=== PATIENT | female | born 1960 | race African-American/Black ===

== ENCOUNTER 2016-12-09 11:13 | Emergency (ER) | payer MEDICARE ==
[~2016-12-09] VITALS: Ht 162.6 cm; Wt 86.2 kg
[2016-12-09] MEDS ORDERED: FENTANYL PF 100 MCG/2 ML VIAL. IV PRN (13:15)
[2016-12-09] MEDS ORDERED: ONDANSETRON PF 4 MG/2 ML VIAL. IV ONE (13:30)
[2016-12-09] MEDS ORDERED: IV NORMAL SALINE 1000ML BAG 1,000 ML IV SCH (13:30)
[2016-12-09 13:32] LABS: BILIRUBIN,URINE NEGATIVE (NEG); GLUCOSE,URINE >=1000 mg/dL (NEG); NITRITE,URINE NEGATIVE (NEG); PROTEIN,URINE NEGATIVE (NEG-TRACE); UROBILINOGEN,URINE 0.2 mg/dL (0.2 mg/dL)
[2016-12-09 13:41] LABS: BACTERIA,URINE MODERATE /HPF (0-FEW); SQUAMOUS EPITHELIAL CELL,UR MOD /LPF
[2016-12-09 13:48] LABS: BASO % 0 % (0-3); EOS % 0 % (0-3); HEMOGLOBIN 13.5 g/dL (12.0-15.5); LYMPH # 1.2 x10^3/uL (1.0-4.8); LYMPH % 11 % (24-48); MEAN CORPUSCULAR HEMOGLOBIN 26 pg (25-35); MEAN CORPUSCULAR HGB CONC 32 g/dL (31-37); MEAN CORPUSCULAR VOLUME 81 fL (79-100); MONO % 5 % (0-9); NEUT % 84 % (31-73); RED CELL DISTRIBUTION WIDTH 14.7 % (11.5-14.5)
[2016-12-09 14:26] LABS: HEMATOCRIT 40.6 % (36.0-47.0); RED BLOOD COUNT 4.98 x10^6/uL (3.50-5.40); WHITE BLOOD COUNT 8.6 x10^3/uL (4.0-11.0)
[2016-12-09 14:27] LABS: PLATELET COUNT 236 x10^3/uL (140-400)
[2016-12-09 14:31] LABS: ALBUMIN 4.1 g/dL (3.4-5.0); ALK PHOS 96 U/L (46-116); ANION GAP 15 (6-14); AST (SGOT) 12 U/L (15-37); BLOOD UREA NITROGEN 30 mg/dL (7-20); CALCIUM 9.2 mg/dL (8.5-10.1); CARBON DIOXIDE 29 mmol/L (21-32); CHLORIDE 90 mmol/L (98-107); CREATININE 1.4 mg/dL (0.6-1.0); DIRECT BILIRUBIN 0.2 mg/dL (0.0-0.2); GFR 46.9; POTASSIUM 4.1 mmol/L (3.5-5.1); SODIUM 134 mmol/L (136-145); TOTAL BILIRUBIN 0.7 mg/dL (0.2-1.0); TOTAL PROTEIN 7.7 g/dL (6.4-8.2)
[2016-12-09 14:32] LABS: GLUCOSE 532 mg/dL (70-99)
[2016-12-09 14:33] LABS: ALT (SGPT) < 6 U/L (14-59)
[2016-12-09] MEDS ORDERED: IV NORMAL SALINE 1000ML BAG 1,000 ML IV ONE (14:45)
[2016-12-09] MEDS ORDERED: INSULIN REGULAR 100 UNIT/ML 10ML VIAL. IV ONE (15:00)
[2016-12-09 15:48] VITALS: BP 163/90
--- NOTE | 2016-12-09 16:00 | PHYS DOC ---
Past Medical History Past Medical History: Bipolar, Diabetes-Type II, High Cholesterol, Hypertension Past Surgical History: Other Additional Past Surgical Histo: THYROIDECTOMY, D&C, LUMP FROM L BREAST X2 Alcohol Use: None Drug Use: None Adult General Chief Complaint Chief Complaint: HYPERGLYCEMIA HPI HPI Patient is a 56 year old female who presents with with upper quadrant abdominal pain and nausea vomiting for the past 3 days. She states she has multiple episodes of nonbloody, nonbilious emesis over this time. Her pain is achy, nonradiating, intermittent, crampy preceding emesis. She denies cough, dyspnea, diarrhea, dysuria, hematuria, fever or chills. She has not been monitoring her blood glucose. Review of Systems Review of Systems Constitutional: Denies fever or chills [] Eyes: Denies change in visual acuity, redness, or eye pain [] HENT: Denies nasal congestion or sore throat [] Respiratory: Denies cough or shortness of breath [] Cardiovascular: No additional information not addressed in HPI [] GI: Denies bloody stools or diarrhea [] : Denies dysuria or hematuria [] Musculoskeletal: Denies back pain or joint pain [] Integument: Denies rash or skin lesions [] Neurologic: Denies headache, focal weakness or sensory changes [] Endocrine: Denies polyuria or polydipsia [] Current Medications Current Medications Current Medications Medications (Trade) Dose Ordered Sig/Raymond Start Time Stop Time Status Last Admin Dose Admin Fentanyl Citrate (Fentanyl 2ml Vial) 50 mcg PRN Q15MIN PRN 12/09/16 13:15 12/10/16 13:14 Insulin Human Regular (Novolin R Vial) 5 unit 1X ONCE 12/09/16 15:00 12/09/16 15:01 DC 12/09/16 15:31 5 UNIT Ondansetron HCl 4 mg 4 mg 1X ONCE 12/09/16 13:30 12/09/16 13:31 DC 12/09/16 13:51 4 MG Sodium Chloride (Iv Sodium Chloride 0.9% 1000ml Bag) 1,000 ml @ 1,000 mls/hr 1X ONCE 12/09/16 14:45 12/09/16 15:44 DC 12/09/16 15:25 1,000 MLS/HR Allergies Allergies Allergies Coded Allergies Type Severity Reaction Last Updated Verified No Known Drug Allergies 12/09/16 No Physical Exam Physical Exam Constitutional: Well developed, well nourished, no acute distress, non-toxic appearance. [] HENT: Normocephalic, atraumatic, bilateral external ears normal, oropharynx moist, nose normal. [] Eyes: PERRLA, EOMI. [] Neck: Normal range of motion, supple. [] Cardiovascular:Heart rate regular rhythm [] Lungs & Thorax: Bilateral breath sounds clear to auscultation [] Abdomen: Bowel sounds normal, soft, mild left upper quadrant tenderness, no guarding or rebound. [] Skin: Warm, dry, no erythema, no rash. [] Back: No tenderness, no CVA tenderness. [] Extremities: No tenderness, ROM intact, no edema. [] Neurologic: Alert and oriented X 3, normal motor function, normal sensory function, no focal deficits noted. [] Psychologic: Affect normal, judgement normal, mood normal. [] Current Patient Data Vital Signs Vital Signs Date Time Temp Pulse Resp B/P Pulse Ox O2 Delivery O2 Flow Rate FiO2 12/09/16 14:18 88 154/71 96 Nasal Cannula 12/09/16 12:50 98.4 20 98.4 Lab Values Laboratory Tests Test 12/09/16 13:15 12/09/16 13:25 12/09/16 13:30 12/09/16 14:05 Glucose (Fingerstick) 541mg/dL (70-99) *H Urine Collection Type Void Urine Color Yellow Urine Clarity Clear Urine pH 5.0 Urine Specific [place] >=1.030 Urine Protein Negativemg/dL (NEG-TRACE) Urine Glucose (UA) >=1000mg/dL (NEG) Urine Ketones (Stick) 40mg/dL (NEG) Urine Blood Negative (NEG) Urine Nitrite Negative (NEG) Urine Bilirubin Negative (NEG) Urine Urobilinogen Dipstick 0.2mg/dL (0.2 mg/dL) Urine Leukocyte Esterase Negative (NEG) Urine RBC 1-2/HPF (0-2) Urine WBC 5-10/HPF (0-4) Urine Squamous Epithelial Cells Mod/LPF Urine Bacteria Moderate/HPF (0-FEW) White Blood Count 8.6x10^3/uL (4.0-11.0) Red Blood Count 4.98x10^6/uL (3.50-5.40) Hemoglobin 13.5g/dL (12.0-15.5) Hematocrit 40.6% (36.0-47.0) Mean Corpuscular Volume 81fL (79-100) Mean Corpuscular Hemoglobin 26pg (25-35) Mean Corpuscular Hemoglobin Concent 32g/dL (31-37) Red Cell Distribution Width 14.7% (11.5-14.5) H Platelet Count 236x10^3/uL (140-400) Neutrophils (%) (Auto) 84% (31-73) H Lymphocytes (%) (Auto) 11% (24-48) L Monocytes (%) (Auto) 5% (0-9) Eosinophils (%) (Auto) 0% (0-3) Basophils (%) (Auto) 0% (0-3) Neutrophils # (Auto) 9.2x10^3uL (1.8-7.7) H Lymphocytes # (Auto) 1.2x10^3/uL (1.0-4.8) Monocytes # (Auto) 0.6x10^3/uL (0.0-1.1) Eosinophils # (Auto) 0.0x10^3/uL (0.0-0.7) Basophils # (Auto) 0.0x10^3/uL (0.0-0.2) Sodium Level 134mmol/L (136-145) L Potassium Level 4.1mmol/L (3.5-5.1) Chloride Level 90mmol/L (98-107) L Carbon Dioxide Level 29mmol/L (21-32) Anion Gap 15 (6-14) H Blood Urea Nitrogen 30mg/dL (7-20) H Creatinine 1.4mg/dL (0.6-1.0) H Estimated GFR (Cockcroft-Gault) 46.9 Glucose Level 532mg/dL (70-99) *H Calcium Level 9.2mg/dL (8.5-10.1) Total Bilirubin 0.7mg/dL (0.2-1.0) Direct Bilirubin 0.2mg/dL (0.0-0.2) Aspartate Amino Transferase (AST) 12U/L (15-37) L Alanine Aminotransferase (ALT) < 6U/L (14-59) L Alkaline Phosphatase 96U/L (46-116) Total Protein 7.7g/dL (6.4-8.2) Albumin 4.1g/dL (3.4-5.0) Lipase 239U/L (73-393) Test 12/09/16 15:30 Glucose (Fingerstick) 463mg/dL (70-99) H Laboratory Tests 12/09/16 13:30 Laboratory Tests 12/09/16 14:05 Course & Med Decision Making Course & Med Decision Making Pertinent Labs and Imaging studies reviewed. (See chart for details) She has hyperglycemia that is improving after medications. Her symptoms are controlled while in the emergency department. She is tolerating oral intake. Recommend close follow-up with her primary care doctor for further management of hyperglycemia. Return precautions given. She understands and agrees with plan. Dragon Disclaimer Dragon Disclaimer This electronic medical record was generated, in whole or in part, using a voice recognition dictation system. Departure Departure Impression: Primary Impression: Nausea and vomiting Additional Impression: Hyperglycemia Disposition: 01 HOME, SELF-CARE Condition: STABLE Referrals: ABDULKADIR GRULLON (PCP) Patient Instructions: Hyperglycemia, [id number] Additional Instructions: Take Zofran as needed for nausea. Drink liquids to stay hydrated. Follow-up with your primary care doctor. Return for any concerns. Scripts Ondansetron (Zofran Odt)4 Mg Tab.rapdis1 Tab SL Q8HRS #10 TAB Prov:Ivonne HENRY MD 12/09/16 Problem Qualifiers Primary Impression: Nausea and vomiting Vomiting type: unspecified Vomiting Intractability: non-intractable Qualified Code: R11.2 - Nausea with vomiting, unspecified Ivonne HENRY MD Dec 09, 2016 16:00
[2016-12-09] MEDS ORDERED: ONDA4TAB10 SL (16:10)
--- NOTE | 2016-12-12 16:18 | VNOTE ---
CALL BACK NOTE CALL BACK Microbiology 12/09/16 Urine Culture - Final, Complete 12/09/16 Urine Culture Result 1 (SURESH) - Final, Complete 12/09/16 Urine Culture Result 2 (SURESH) - Final, Complete 12/09/16 Antimicrobic Susceptibility - Final, Complete Patient was notified that her urine was positive for e. coli she had not been placed on antibiotics during her visit. Gomez has been called in to her pharmacy at [facility]. SILVA MOTLEY NP Dec 12, 2016 16:18
== END 2016-12-09 16:42 | disposition home or self-care (01) ==
LOC: ER 11:13
DX: R11.2 Nausea with vomiting, unspecified (principal); E11.65 Type 2 diabetes mellitus with hyperglycemia; I10 Essential (primary) hypertension; E78.00 Pure hypercholesterolemia, unspecified
CPT/HCPCS: 36415; 80048; 80076; 81001; 82947; 83690; 85027; 87086; 96361; 96374; 96375; 99284; J2405; J7030; J1815

== ENCOUNTER → 2017-06-01 | Outpatient (CLI) | payer OTHER, MEDICARE ==
[2017-04-23 11:00] VITALS: BP 131/84
[~2017-06-01] MED LIST: METF500T4 PO; ONDA4TAB10 SL
--- NOTE | 2017-06-01 15:36 | RAD ---
CT head without contrast 06/01/2017 at 1353 hours Indication: Subdural hemorrhage Comparison: 04/21/2017 CT head Technique: Multiple axial CT images of the head were obtained from skull base to the vertex without intravenous contrast. Findings: There is interval resolution of small left frontal convexity subdural hemorrhage. No acute intracranial hemorrhage is identified. The ventricles, basal cisterns and sulci are normal for patient's age. Senescent calcifications noted in the basal ganglia. Steel-white matter differentiation is maintained. There is no mass, mass effect or midline shift. Visualized orbits are normal. Mastoid air cells and the nasal sinuses are well aerated. Skull base is intact. No calvarial fractures. Scalp is normal. Impression: Interval resolution of left convexity subdural hemorrhage. No new intracranial hemorrhage is identified. PQRS Compliance Statement: One or more of the following individualized dose reduction techniques were utilized for this examination: 1. Automated exposure control 2. Adjustment of the mA and/or kV according to patient size 3. Use of iterative reconstruction technique
== END | disposition home or self-care (01) ==
LOC: CT 08:00
PROVIDERS: ATTEND Neurological Surgery
DX: I62.00 Nontraumatic subdural hemorrhage, unspecified (principal)
CPT/HCPCS: 70450

== ENCOUNTER 2018-01-10 16:03 | Inpatient (IN) | payer MEDICARE, OTHER ==
[2018-01-10 16:40] LABS: ADD MAN DIFF? NO
[2018-01-10 16:43] LABS: BASO % 0 % (0-3); EOS % 0 % (0-3); HEMATOCRIT 42.2 % (36.0-47.0); HEMOGLOBIN 13.7 g/dL (12.0-15.5); LYMPH # 2.4 x10^3/uL (1.0-4.8); LYMPH % 25 % (24-48); MEAN CORPUSCULAR HEMOGLOBIN 25 pg (25-35); MEAN CORPUSCULAR HGB CONC 32 g/dL (31-37); MEAN CORPUSCULAR VOLUME 78 fL (79-100); MONO # 1.1 x10^3/uL (0.0-1.1); MONO % 11 % (0-9); NEUT # 6.1 x10^3uL (1.8-7.7); NEUT % 63 % (31-73); PLATELET COUNT 294 x10^3/uL (140-400); RED BLOOD COUNT 5.43 x10^6/uL (3.50-5.40); RED CELL DISTRIBUTION WIDTH 15.9 % (11.5-14.5); WHITE BLOOD COUNT 9.6 x10^3/uL (4.0-11.0)
[2018-01-10 16:48] LABS: BILIRUBIN,URINE SMALL (NEG); CLARITY,URINE CLOUDY; COLOR,URINE YELLOW; GLUCOSE,URINE 100 mg/dL (NEG); NITRITE,URINE NEGATIVE (NEG); PROTEIN,URINE 100 mg/dL (NEG-TRACE)
[2018-01-10] MEDS: cloNIDine HCL 0.1 MG TABLET PO (16:52)
[2018-01-10] MEDS: ONDANSETRON PF 4 MG/2 ML VIAL. IV (16:53)
[2018-01-10 16:56] LABS: BACTERIA,URINE MANY /HPF (0-FEW); RBC,URINE 0 /HPF (0-2); SQUAMOUS EPITHELIAL CELL,UR MANY /LPF
[2018-01-10 16:58] LABS: ANION GAP 13 (6-14); BLOOD UREA NITROGEN 12 mg/dL (7-20); BUN/CREATININE RATIO 12 (6-20); CALCIUM 9.1 mg/dL (8.5-10.1); CARBON DIOXIDE 27 mmol/L (21-32); CHLORIDE 95 mmol/L (98-107); GFR 68.9; GLUCOSE 236 mg/dL (70-99); POTASSIUM 3.4 mmol/L (3.5-5.1); SODIUM 135 mmol/L (136-145)
[2018-01-10 17:04] LABS: ALBUMIN 3.9 g/dL (3.4-5.0); ALK PHOS 81 U/L (46-116); ALT (SGPT) 19 U/L (14-59); AST (SGOT) 13 U/L (15-37); LIPASE 118 U/L (73-393); TOTAL BILIRUBIN 0.6 mg/dL (0.2-1.0)
[2018-01-10 17:05] LABS: TROPONINI < 0.017 ng/mL (0.000-0.055)
[2018-01-10 17:09] LABS: NT-PRO BNP 75 pg/mL (0-124)
[2018-01-10] MEDS: METOCLOPRAMIDE HCL 10 MG/2 ML VIAL. IV (17:45)
[2018-01-10] MEDS: LABETALOL 20 MG/4 ML DISP.SYRIN. IVP (17:45)
[2018-01-10] MEDS ORDERED: ONDANSETRON PF 4 MG/2 ML VIAL. IV (18:00)
[2018-01-10 21:07] LABS: POC GLUCOSE 241 mg/dL (70-99)
[2018-01-11 04:21] LABS: ADD MAN DIFF? NO
[2018-01-11 04:26] LABS: BASO # 0.1 x10^3/uL (0.0-0.2); BASO % 1 % (0-3); EOS % 0 % (0-3); HEMATOCRIT 37.7 % (36.0-47.0); HEMOGLOBIN 12.6 g/dL (12.0-15.5); LYMPH # 3.1 x10^3/uL (1.0-4.8); LYMPH % 40 % (24-48); MEAN CORPUSCULAR HEMOGLOBIN 26 pg (25-35); MEAN CORPUSCULAR HGB CONC 34 g/dL (31-37); MEAN CORPUSCULAR VOLUME 77 fL (79-100); MONO # 1.2 x10^3/uL (0.0-1.1); MONO % 15 % (0-9); NEUT # 3.5 x10^3uL (1.8-7.7); NEUT % 45 % (31-73); PLATELET COUNT 265 x10^3/uL (140-400); RED BLOOD COUNT 4.87 x10^6/uL (3.50-5.40); RED CELL DISTRIBUTION WIDTH 15.7 % (11.5-14.5); WHITE BLOOD COUNT 7.8 x10^3/uL (4.0-11.0)
[2018-01-11 04:45] LABS: ALBUMIN 3.3 g/dL (3.4-5.0); ALBUMIN/GLOBULIN RATIO 0.9 (1.0-1.7); ALK PHOS 68 U/L (46-116); ALT (SGPT) 15 U/L (14-59); ANION GAP 8 (6-14); AST (SGOT) 14 U/L (15-37); BLOOD UREA NITROGEN 14 mg/dL (7-20); BUN/CREATININE RATIO 14 (6-20); CALCIUM 8.4 mg/dL (8.5-10.1); CARBON DIOXIDE 31 mmol/L (21-32); CHLORIDE 98 mmol/L (98-107); GFR 68.9; GLUCOSE 183 mg/dL (70-99); POTASSIUM 3.2 mmol/L (3.5-5.1); SODIUM 137 mmol/L (136-145); TOTAL BILIRUBIN 0.5 mg/dL (0.2-1.0); TOTAL PROTEIN 6.8 g/dL (6.4-8.2)
[2018-01-11 07:48] LABS: POC GLUCOSE 245 mg/dL (70-99)
[2018-01-11] MEDS: LABETALOL 20 MG/4 ML DISP.SYRIN. IV ×2 (08:02→12:35)
[2018-01-11] MEDS ORDERED: BISACODYL 5 MG TABLET.DR. PO (10:15)
[2018-01-11 11:38] LABS: POC GLUCOSE 245 mg/dL (70-99)
[2018-01-11] MEDS ORDERED: ONDANSETRON ODT 4 MG TAB.RAPDIS. PO (11:45)
[2018-01-11] MEDS: PANTOPRAZOLE 40 MG TABLET.DR. PO (12:33)
[2018-01-11] MEDS: LINAGLIPTIN 5 MG TABLET PO (12:33)
[2018-01-11] MEDS: POLYETHYLENE GLYCOL 3350 17 GM PACKET. PO (12:33)
[2018-01-11] MEDS: LEVOTHYROXINE 100 MCG TABLET PO (12:33)
[2018-01-11] MEDS: INSULIN DETEMIR 300 UNITS/3 ML INSULN.PEN. SQ (12:43)
[2018-01-11] MEDS ORDERED: metFORMIN 500 MG TABLET PO ×2 (17:00)
[2018-01-11] MEDS ORDERED: SIMVASTATIN 40 MG TABLET. PO (21:00)
[2018-01-11] MEDS ORDERED: QUEtiapine 100 MG TABLET. PO (21:00)
[2018-01-12 01:14] LABS: HEMOGLOBIN A1C 9.7 % (4.8-5.6)
== END 2018-01-11 17:45 | disposition home or self-care (01) | DRG 391 ==
LOC: ER 16:03 → ED HOLD 16:50 → 4 NORTH 20:13
DX: A08.4 Viral intestinal infection, unspecified (principal); K85.90 Acute pancreatitis without necrosis or infection, unspecified; I10 Essential (primary) hypertension; E11.9 Type 2 diabetes mellitus without complications; E78.5 Hyperlipidemia, unspecified; E89.0 Postprocedural hypothyroidism; F17.210 Nicotine dependence, cigarettes, uncomplicated; F31.9 Bipolar disorder, unspecified; K21.9 Gastro-esophageal reflux disease without esophagitis; K59.00 Constipation, unspecified; Z82.3 Family history of stroke; Z82.49 Family history of ischemic heart disease and other diseases of the circulatory system; Z90.710 Acquired absence of both cervix and uterus
CPT/HCPCS: 36415; 71045; 76705; 80053; 81001; 82962; 83036; 83690; 83880; 84484; 85025; 87086; 93005; 96374; 96375; 99285; 99285-25; J1815; J2405; J2765; J3490

== ENCOUNTER → 2018-07-05 | Outpatient (CLI) | payer OTHER ==
[2018-01-11 15:00] VITALS: BP 171/103
[~2018-07-05] MED LIST changes: +INSU100V13 SQ; +LEVO100T5 PO; +LINA5TAB4 PO; -METF500T4 PO; +METF500T5 PO; +QUET300T5 PO; +SIMV40TA3 PO
--- NOTE | 2018-07-06 12:54 | RAD ---
DATE: 07/05/2018 EXAM: MAMMO PAXTON SCREENING BILATERAL HISTORY: Routine screening evaluation COMPARISON: 10/20/2008 Bilateral CC and MLO views of the breasts were performed. Bilateral breast tomosynthesis was performed in CC and MLO projections. This study was interpreted with the benefit of Computerized Aided Detection (CAD). The breast parenchyma is heterogeneously dense, which could reduce sensitivity of mammography. Breast parenchyma level C. FINDINGS: Benign calcifications are present. No suspicious masses, microcalcifications or architectural distortion is present to suggest malignancy in either breast. The visualized axillae are unremarkable. IMPRESSION: No mammographic evidence of malignancy. BI-RADS CATEGORY: 2 BENIGN FINDING(S) RECOMMENDED FOLLOW-UP: 12M 12 MONTH FOLLOW-UP Annual screening mammography is recommended, unless clinically indicated sooner based on symptoms or change in physical exam. PQRS compliance statement: Patient information was entered into a reminder system with a target due date for the next mammogram. Mammography is a sensitive method for finding small breast cancers, but it does not detect them all and is not a substitute for careful clinical examination. A negative mammogram does not negate a clinically suspicious finding and should not result in delay in biopsying a clinically suspicious abnormality. "Our facility is accredited by the [employer] Mammography Program."
== END | disposition home or self-care (01) ==
LOC: MAMMO 11:12
PROVIDERS: ATTEND Internal Medicine
DX: Z12.31 Encounter for screening mammogram for malignant neoplasm of breast (principal)
CPT/HCPCS: 77063; 77067

== ENCOUNTER 2019-01-11 23:00 | Inpatient (IN) | payer OTHER ==
[~2019-01-11] VITALS: Ht 167.6 cm; Wt 78.5 kg
[~2019-01-11 23:00] MED LIST changes: +AMLO10TA8 PO; +ASPI-612 PO; +ATOR40TA59 PO; +DULA1.5P SQ; +INSU100I13 SQ; +LINA5TAB PO; -LINA5TAB4 PO; +LISI1TAB3 PO; +METF500T16 PO; -METF500T5 PO
[2019-01-11] MEDS ORDERED: IV NORMAL SALINE 1000ML BAG 1,000 ML IV SCH (23:45)
--- NOTE | 2019-01-12 00:21 | RAD ---
INDICATION: right sided facial droop; period of unresponsiveness COMPARISON: January 03, 2019 TECHNIQUE: Axial CT images obtained through the head without intravenous contrast. One or more of the following individualized dose reduction techniques were utilized for this examination: 1. Automated exposure control; 2. Adjustment of the mA and/or kV according to patient size; 3. Use of iterative reconstruction technique. FINDINGS: No midline shift. Suprasellar cistern is not effaced. Scattered regions of low density are seen within the white matter. Repeat demonstration of region of high density in the basal ganglia bilaterally as well as very subtle region of high density seen superior to this site. IMPRESSION: 1. Repeat demonstration of multifocal regions of low density bilaterally. Some of these are chronic in nature likely from chronic small vessel ischemic disease in some of them correspond to the recently diagnosed regions of peripheral ischemia with associated edema. Overall severity is similar to prior. 2. Repeat demonstration of high density at the basal ganglia bilaterally. Again this could be secondary to calcifications within the region. The overall degree of the suspected small foci of blood within the left basal ganglia does not appear increased from prior without definite new region of hemorrhage. 3. evidence of old lacunar infarct adjacent to right lateral ventricle. Electronically signed by: Barney Escobar MD (01/12/2019 12:18 AM) [facility]
[2019-01-12 00:33] LABS: BASO % 1 % (0-3); EOS % 0 % (0-3); HEMATOCRIT 38.2 % (36.0-47.0); HEMOGLOBIN 12.2 g/dL (12.0-15.5); LYMPH # 1.9 x10^3/uL (1.0-4.8); LYMPH % 35 % (24-48); MEAN CORPUSCULAR HEMOGLOBIN 26 pg (25-35); MEAN CORPUSCULAR HGB CONC 32 g/dL (31-37); MEAN CORPUSCULAR VOLUME 81 fL (79-100); MONO # 0.6 x10^3/uL (0.0-1.1); MONO % 10 % (0-9); NEUT % 55 % (31-73); PLATELET COUNT 243 x10^3/uL (140-400); RED BLOOD COUNT 4.69 x10^6/uL (3.50-5.40); RED CELL DISTRIBUTION WIDTH 15.3 % (11.5-14.5); WHITE BLOOD COUNT 5.5 x10^3/uL (4.0-11.0)
[2019-01-12 00:40] LABS: CALCIUM 8.8 mg/dL (8.5-10.1); CREATININE 1.1 mg/dL (0.6-1.0); GFR 61.5; POTASSIUM 3.5 mmol/L (3.5-5.1); PROTHROMBIN TIME PATIENT 12.9 SEC (11.7-14.0)
[2019-01-12 00:45] LABS: ALBUMIN 3.4 g/dL (3.4-5.0); ALBUMIN/GLOBULIN RATIO 0.9 (1.0-1.7); MAGNESIUM 1.8 mg/dL (1.8-2.4); TOTAL BILIRUBIN 0.5 mg/dL (0.2-1.0); TOTAL PROTEIN 7.1 g/dL (6.4-8.2)
--- NOTE | 2019-01-12 01:14 | PHYS DOC ---
Past Medical History Past Medical History: Bipolar, CVA, Diabetes-Type II, High Cholesterol, Hypertension, Hypothyroid Past Surgical History: Other Additional Past Surgical Histo: THYROIDECTOMY, D&C, LUMP FROM L BREAST X2 Alcohol Use: None Drug Use: None Adult General Chief Complaint Chief Complaint: NEURO SYMPTOMS/DEFICITS HPI HPI Patient is a 58-year-old female who presents with report of strokelike symptoms. Patient presents with daughter and she indicates that patient was recently discharged from the hospital after having had stroke. She was admitted on January 03 and discharged on the . Daughter states that she was getting patient up to go to bed when patient's legs gave out, she slumped backward and eyes rolled back in the back of her head. She states that for a short period of time patient was not responsive and then was confused for probably about 5-10 minutes. She denies any shaking. She does state that she noticed that patient had right-sided facial droop which is new from when she was discharged. She states that facial droop is still present. Additional history is limited as patient is not answering questions. Review of Systems Review of Systems Constitutional: Denies fever or chills [] Respiratory: Denies cough or shortness of breath [] Cardiovascular: No additional information not addressed in HPI [] GI: Denies vomiting or diarrhea [] Neurologic: Positive facial droop, aphasia and mental status change[] Unable to fully assess review of systems as patient is not answering questions. Current Medications Current Medications Current Medications Medications (Trade) Dose Ordered Sig/Raymond Start Time Stop Time Status Last Admin Dose Admin Ondansetron HCl (Zofran) 4 mg PRN Q8HRS PRN 01/12/19 02:45 01/13/19 02:44 Sodium Chloride 1,000 ml @ 100 mls/hr Q10H 01/12/19 02:45 01/13/19 02:44 01/12/19 21:34 100 MLS/HR Allergies Allergies Allergies Coded Allergies Type Severity Reaction Last Updated Verified No Known Drug Allergies 12/09/16 No Physical Exam Physical Exam Constitutional: Well developed, well nourished, no acute distress, non-toxic appearance. [] HENT: Normocephalic, atraumatic, bilateral external ears normal, oropharynx moist, no oral exudates, nose normal. [] Eyes: PERRLA, EOMI, conjunctiva normal, no discharge. [] Neck: Normal range of motion, no tenderness, supple, no stridor. [] Cardiovascular:Heart rate regular rhythm, no murmur [] Lungs & Thorax: Bilateral breath sounds clear to auscultation [] Abdomen: Bowel sounds normal, soft, no tenderness, no masses, no pulsatile masses. [] Skin: Warm, dry, no erythema, no rash. [] Back: No tenderness, no CVA tenderness. [] Extremities: No tenderness, no cyanosis, no clubbing, ROM intact, no edema. [] Neurologic: Alert and oriented X 3, normal motor function, normal sensory function, no focal deficits noted. [] Psychologic: Affect normal, judgement normal, mood normal. [] Current Patient Data Vital Signs Vital Signs Date Time Temp Pulse Resp B/P (MAP) Pulse Ox O2 Delivery O2 Flow Rate FiO2 01/12/19 02:38 88 16 98 01/11/19 23:15 97.8 129/66 (87) Room Air 97.8 Lab Values Laboratory Tests Test 01/12/19 00:21 White Blood Count 5.5 x10^3/uL (4.0-11.0) Red Blood Count 4.69 x10^6/uL (3.50-5.40) Hemoglobin 12.2 g/dL (12.0-15.5) Hematocrit 38.2 % (36.0-47.0) Mean Corpuscular Volume 81 fL (79-100) Mean Corpuscular Hemoglobin 26 pg (25-35) Mean Corpuscular Hemoglobin Concent 32 g/dL (31-37) Red Cell Distribution Width 15.3 % (11.5-14.5) H Platelet Count 243 x10^3/uL (140-400) Neutrophils (%) (Auto) 55 % (31-73) Lymphocytes (%) (Auto) 35 % (24-48) Monocytes (%) (Auto) 10 % (0-9) H Eosinophils (%) (Auto) 0 % (0-3) Basophils (%) (Auto) 1 % (0-3) Neutrophils # (Auto) 3.0 x10^3uL (1.8-7.7) Lymphocytes # (Auto) 1.9 x10^3/uL (1.0-4.8) Monocytes # (Auto) 0.6 x10^3/uL (0.0-1.1) Eosinophils # (Auto) 0.0 x10^3/uL (0.0-0.7) Basophils # (Auto) 0.0 x10^3/uL (0.0-0.2) Prothrombin Time 12.9 SEC (11.7-14.0) Prothrombin Time INR 1.0 (0.8-1.1) Sodium Level 136 mmol/L (136-145) Potassium Level 3.5 mmol/L (3.5-5.1) Chloride Level 97 mmol/L (98-107) L Carbon Dioxide Level 28 mmol/L (21-32) Anion Gap 11 (6-14) Blood Urea Nitrogen 20 mg/dL (7-20) Creatinine 1.1 mg/dL (0.6-1.0) H Estimated GFR (Cockcroft-Gault) 61.5 BUN/Creatinine Ratio 18 (6-20) Glucose Level 328 mg/dL (70-99) H Calcium Level 8.8 mg/dL (8.5-10.1) Magnesium Level 1.8 mg/dL (1.8-2.4) Total Bilirubin 0.5 mg/dL (0.2-1.0) Aspartate Amino Transferase (AST) 17 U/L (15-37) Alanine Aminotransferase (ALT) 17 U/L (14-59) Alkaline Phosphatase 67 U/L (46-116) Total Protein 7.1 g/dL (6.4-8.2) Albumin 3.4 g/dL (3.4-5.0) Albumin/Globulin Ratio 0.9 (1.0-1.7) L Laboratory Tests 01/12/19 00:21 Laboratory Tests 01/12/19 00:21 EKG EKG [] Radiology/Procedures Radiology/Procedures [] Impressions: PROCEDURE: CT HEAD WO CONTRAST INDICATION: right sided facial droop; period of unresponsiveness COMPARISON: January 03, 2019 TECHNIQUE: Axial CT images obtained through the head without intravenous contrast. One or more of the following individualized dose reduction techniques were utilized for this examination: 1. Automated exposure control; 2. Adjustment of the mA and/or kV according to patient size; 3. Use of iterative reconstruction technique. FINDINGS: No midline shift. Suprasellar cistern is not effaced. Scattered regions of low density are seen within the white matter. Repeat demonstration of region of high density in the basal ganglia bilaterally as well as very subtle region of high density seen superior to this site. IMPRESSION: 1. Repeat demonstration of multifocal regions of low density bilaterally. Some of these are chronic in nature likely from chronic small vessel ischemic disease in some of them correspond to the recently diagnosed regions of peripheral ischemia with associated edema. Overall severity is similar to prior. 2. Repeat demonstration of high density at the basal ganglia bilaterally. Again this could be secondary to calcifications within the region. The overall degree of the suspected small foci of blood within the left basal ganglia does not appear increased from prior without definite new region of hemorrhage. 3. evidence of old lacunar infarct adjacent to right lateral ventricle. Electronically signed by: Barney Escobar MD (01/12/2019 12:18 AM) [facility] Course & Med Decision Making Course & Med Decision Making Pertinent Labs and Imaging studies reviewed. (See chart for details) [] Dragon Disclaimer Dragon Disclaimer This electronic medical record was generated, in whole or in part, using a voice recognition dictation system. Departure Departure Impression: Primary Impression: TIA (transient ischemic attack) Disposition: 09 ADMITTED INPATIENT Admitting Physician: Other (Dr. Reyes) Condition: IMPROVED Referrals: KANCHAN CASTANON MD (PCP) BRAYDEN GARCIA Jr. DO Jan 12, 2019 01:14
[2019-01-12] MEDS ORDERED: ONDANSETRON PF 4 MG/2 ML VIAL. IV PRN (02:45)
[2019-01-12 03:45] VITALS: BP 121/76
[2019-01-12] MEDS ORDERED: INFLUENZA VAX SCREEN BY RX. MC ONE (05:15)
[2019-01-12] MEDS: IV NORMAL SALINE 1000ML BAG 1,000 ML IV SCH ×3 (05:18→21:34)
[2019-01-12 07:00] VITALS: BP 118/63
[2019-01-12 11:00] VITALS: BP 140/87
--- NOTE | 2019-01-12 12:16 | PDOC1 ---
History and Physical Date of Admission Date of Admission DATE: 01/12/19 TIME: 11:42 Identification/Chief Complaint Chief Complaint Shaking Source Source: Patient History of Present Illness History of Present Illness 58-year-old right-handed female with history of diabetes and bipolar disorder who was found shaking and unresponsive at home by her sister. Had CVA confirmed 01/05, discharged on 01/07 to home health with her sister. Previously seen 2 years ago for a small subdural hematoma not requiring surgery. CT head in ED did not demonstrate new CVA. She has no complaints, except hunger. She is verbalizing as much as she did with me last visit. Failed her bedside swallow with nursing. Oriented to person only, not able to get much more history out of her. [Prior admit: Worked with PT/OT/TELEPHONE OPERATOR, recommended home health on D/C. BP was difficult to control, requiring IV meds up until day of d/c. placed on 3 antihypertensives on d/c. She could not tolerate metformin due to vomiting, changed to insulin. Previously stopped GLP-1 due to pancreatitis, stop this as well. Hold ASA per neuro recs, 7 days as of 01/07. No swallow issues Echocardiogram as part of stroke workup: Left ventricle systolic function is normal. The Ejection Fraction is 60-65%. There is normal LV segmental wall motion. The interatrial septum is intact with no evidence for an atrial septal defect or patent foramen ovale as noted on 2-D or Doppler imaging. Injection of bubbles documented no interatrial shunt. mri: 1. Scattered small acute or subacute infarct within the bilateral cerebral white matter and the right cerebellum. The majority of these lesions appear to be subacute based on signal characteristics. The acute lesions are located within the right frontal lobe and right cerebellum. 2. Acute or subacute intraparenchymal hemorrhage or hemorrhagic transformation of an infarct within the left basal ganglia and adjacent periventricular white matter. 3. Suspected chronic hemorrhage or hemorrhagic infarct within the right caudate nucleus and chronic lacunar infarcts within the left caudate nucleus, left thalamus and right jomar. 4. Scattered areas of signal change within the cerebral white matter, likely due to chronic small vessel disease] Past Medical History Cardiovascular: HTN CENTRAL NERVOUS SYSTEM: Periperal neuropathy, Other GI: Other Psych: Addictions, Bipolar Endocrine: Diabetes, Hypothyroidism Past Surgical History Past Surgical History: Other Family History Family History: Hypertension Social History ALCOHOL: none Drugs: None Current Problem List Problem List Problems Medical Problems: (1) TIA (transient ischemic attack) Status: Acute Current Medications Current Medications Current Medications Sodium Chloride 1,000 ml @ 100 mls/hr Q10H IV Last administered on 01/12/19at 01:11; Start 01/11/19 at 23:45; Stop 01/12/19 at 09:44; Status DC Ondansetron HCl (Zofran) 4 mg PRN Q8HRS PRN IV NAUSEA/VOMITING; Start 01/12/19 at 02:45; Stop 01/13/19 at 02:44 Sodium Chloride 1,000 ml @ 100 mls/hr Q10H IV Last administered on 01/12/19at 11:13; Start 01/12/19 at 02:45; Stop 01/13/19 at 02:44 Info (FLU VACCINE SCREEN per RX) 1 each 1X ONCE MC ; Start 01/12/19 at 05:15; Stop 01/12/19 at 05:16; Status UNV Influenza Virus Vaccine (Afluria Trivalent [id number] Syringe) 0.5 ml ONCE ONCE VAX IM Last administered on 01/12/19at 09:09; Start 01/12/19 at 09:00; Stop at 09:01; Status DC Active Scripts Active Lisinopril-Hctz 10-12.5 Mg Tab (Lisinopril/Hydrochlorothiazide) 1 Each Tablet 1 Tab PO DAILY 3 Days Aspirin Ec (Aspirin) 81 Mg Tablet. 1 Tab PO DAILY Lantus Solostar (Insulin Glargine,Hum.rec.anlog) 100 Unit/1 Ml Insuln.pen 8 Unit SQ QHS Amlodipine Besylate 10 Mg Tablet 10 Mg PO DAILY 30 Days Atorvastatin Calcium 40 Mg Tablet 1 Tab PO DAILY 30 Days Reported Trulicity (Dulaglutide) 1.5 Mg/0.5 Ml Pen.injctr 1.5 Mg SQ WEEKLY Seroquel (Quetiapine Fumarate) 300 Mg Tablet 1 Tab PO QHS Levothyroxine Sodium 100 Mcg Tablet 1 Tab PO DAILY Allergies Allergies: Coded Allergies: No Known Drug Allergies (Unverified , 12/09/16) ROS Review of System Unable to obtain due to confusion state, not oriented. She denies any positives in a 14 point system review except hunger Physical Exam General: Alert, Cooperative, No acute distress HEENT: Atraumatic, PERRLA, EOMI, Mucous membr. moist/pink Lungs: Clear to auscultation, Normal air movement Heart: S1S2, RRR Rectal Exam: not examined Extremities: No clubbing, No cyanosis, No edema, Normal pulses, No tenderness/ swelling Neuro: Other (orientation, memory, attention span/concentration, language, fund of knowledge: Knows that she is in the hospital, does not know the date, does follow commands, unable to give history. Cranial Nerves:Pupils equal and reactive to light, extraocular movements areintact, visual vargas are full to confrontation. Facial sensation is normal. There is no facial asymmetry. Vestibulo-ocular reflex is intact. Palate elevates and tongue protrudes in midline. All other cranial related problems are negative except as mentioned before.Reflexes:0-1+ and symmetric with flexor plantar responses. Motor:4/5 strength with normal tone and bulk. Coordination:Finger-nose finger and heel-to -ring testing are normal. Rapid alternating movements and fine finger movements are intact. Gait:Not tested. Sensory:Stocking loss.) Psych/Mental Status: Other (Confused) Vitals Vitals Vital Signs Date Time Temp Pulse Resp B/P (MAP) Pulse Ox O2 Delivery O2 Flow Rate FiO2 01/12/19 11:00 98.7 75 18 140/87 (104) 92 Room Air 98.7 Labs Labs Laboratory Tests Test 01/12/19 00:21 01/12/19 07:12 01/12/19 11:04 White Blood Count 5.5 x10^3/uL (4.0-11.0) Red Blood Count 4.69 x10^6/uL (3.50-5.40) Hemoglobin 12.2 g/dL (12.0-15.5) Hematocrit 38.2 % (36.0-47.0) Mean Corpuscular Volume 81 fL (79-100) Mean Corpuscular Hemoglobin 26 pg (25-35) Mean Corpuscular Hemoglobin Concent 32 g/dL (31-37) Red Cell Distribution Width 15.3 % (11.5-14.5) Platelet Count 243 x10^3/uL (140-400) Neutrophils (%) (Auto) 55 % (31-73) Lymphocytes (%) (Auto) 35 % (24-48) Monocytes (%) (Auto) 10 % (0-9) Eosinophils (%) (Auto) 0 % (0-3) Basophils (%) (Auto) 1 % (0-3) Neutrophils # (Auto) 3.0 x10^3uL (1.8-7.7) Lymphocytes # (Auto) 1.9 x10^3/uL (1.0-4.8) Monocytes # (Auto) 0.6 x10^3/uL (0.0-1.1) Eosinophils # (Auto) 0.0 x10^3/uL (0.0-0.7) Basophils # (Auto) 0.0 x10^3/uL (0.0-0.2) Prothrombin Time 12.9 SEC (11.7-14.0) Prothromb Time International Ratio 1.0 (0.8-1.1) Sodium Level 136 mmol/L (136-145) Potassium Level 3.5 mmol/L (3.5-5.1) Chloride Level 97 mmol/L (98-107) Carbon Dioxide Level 28 mmol/L (21-32) Anion Gap 11 (6-14) Blood Urea Nitrogen 20 mg/dL (7-20) Creatinine 1.1 mg/dL (0.6-1.0) Estimated GFR (Cockcroft-Gault) 61.5 BUN/Creatinine Ratio 18 (6-20) Glucose Level 328 mg/dL (70-99) Calcium Level 8.8 mg/dL (8.5-10.1) Magnesium Level 1.8 mg/dL (1.8-2.4) Total Bilirubin 0.5 mg/dL (0.2-1.0) Aspartate Amino Transf (AST/SGOT) 17 U/L (15-37) Alanine Aminotransferase (ALT/SGPT) 17 U/L (14-59) Alkaline Phosphatase 67 U/L (46-116) Total Protein 7.1 g/dL (6.4-8.2) Albumin 3.4 g/dL (3.4-5.0) Albumin/Globulin Ratio 0.9 (1.0-1.7) Glucose (Fingerstick) 194 mg/dL (70-99) 165 mg/dL (70-99) Laboratory Tests Test 01/12/19 00:21 01/12/19 07:12 01/12/19 11:04 White Blood Count 5.5 x10^3/uL (4.0-11.0) Red Blood Count 4.69 x10^6/uL (3.50-5.40) Hemoglobin 12.2 g/dL (12.0-15.5) Hematocrit 38.2 % (36.0-47.0) Mean Corpuscular Volume 81 fL (79-100) Mean Corpuscular Hemoglobin 26 pg (25-35) Mean Corpuscular Hemoglobin Concent 32 g/dL (31-37) Red Cell Distribution Width 15.3 % (11.5-14.5) Platelet Count 243 x10^3/uL (140-400) Neutrophils (%) (Auto) 55 % (31-73) Lymphocytes (%) (Auto) 35 % (24-48) Monocytes (%) (Auto) 10 % (0-9) Eosinophils (%) (Auto) 0 % (0-3) Basophils (%) (Auto) 1 % (0-3) Neutrophils # (Auto) 3.0 x10^3uL (1.8-7.7) Lymphocytes # (Auto) 1.9 x10^3/uL (1.0-4.8) Monocytes # (Auto) 0.6 x10^3/uL (0.0-1.1) Eosinophils # (Auto) 0.0 x10^3/uL (0.0-0.7) Basophils # (Auto) 0.0 x10^3/uL (0.0-0.2) Prothrombin Time 12.9 SEC (11.7-14.0) Prothromb Time International Ratio 1.0 (0.8-1.1) Sodium Level 136 mmol/L (136-145) Potassium Level 3.5 mmol/L (3.5-5.1) Chloride Level 97 mmol/L (98-107) Carbon Dioxide Level 28 mmol/L (21-32) Anion Gap 11 (6-14) Blood Urea Nitrogen 20 mg/dL (7-20) Creatinine 1.1 mg/dL (0.6-1.0) Estimated GFR (Cockcroft-Gault) 61.5 BUN/Creatinine Ratio 18 (6-20) Glucose Level 328 mg/dL (70-99) Calcium Level 8.8 mg/dL (8.5-10.1) Magnesium Level 1.8 mg/dL (1.8-2.4) Total Bilirubin 0.5 mg/dL (0.2-1.0) Aspartate Amino Transf (AST/SGOT) 17 U/L (15-37) Alanine Aminotransferase (ALT/SGPT) 17 U/L (14-59) Alkaline Phosphatase 67 U/L (46-116) Total Protein 7.1 g/dL (6.4-8.2) Albumin 3.4 g/dL (3.4-5.0) Albumin/Globulin Ratio 0.9 (1.0-1.7) Glucose (Fingerstick) 194 mg/dL (70-99) 165 mg/dL (70-99) Images Images CT Head - 1. Repeat demonstration of multifocal regions of low density bilaterally. Some of these are chronic in nature likely from chronic small vessel ischemic disease in some of them correspond to the recently diagnosed regions of peripheral ischemia with associated edema. Overall severity is similar to prior. 2. Repeat demonstration of high density at the basal ganglia bilaterally. Again this could be secondary to calcifications within the region. The overall degree of the suspected small foci of blood within the left basal ganglia does not appear increased from prior without definite new region of hemorrhage. 3. evidence of old lacunar infarct adjacent to right lateral ventricle. VTE Prophylaxis Ordered VTE Prophylaxis Devices: Yes VTE Pharmacological Prophylaxi: No Assessment/Plan Assessment/Plan A/P: Shaking - no hemorrhage on CT head. Will consult neurology for this, no seizure like activity has been noted Acute to subacute right cerebellar lobe and bilateral cerebral ischemic CVA - does have ASA on hold for 2 additional day, cont statin History of left subdural hematoma 2 years ago - stable Some hemorrhagic transformation of ischemic CVA - holding ASA Possible interval development of left basal ganglia stroke - will consult neurology Metabolic encephalopathy - likely related to medication noncompliance, elevated sugars, renal insufficiency probably prerenal dehydration, as well as lack of treatment of her psychiatric disorder and her recent stroke History of bipolar disease - cont seroquel History of alcohol abuse, none in several years - monitor Accel HTN - will restart meds FEN - NPO pending TELEPHONE OPERATOR bedside PPX - SCDs FULL CODE Inpatient for acute encephalopathy in patient with recent CVA, she will need skilled placement on D/C, seems to have failed a home health trial at this point. At least 2 midnights to get her improved MALFEL,ADAMARIS Davis MD Jan 12, 2019 12:16
[2019-01-12] MEDS: amLODIPine BESYLATE 10 MG TABLET PO SCH ×2 (12:57→15:17)
[2019-01-12] MEDS: hydroCHLOROthiazide 12.5 MG CAPSULE PO SCH ×2 (12:57→15:16)
[2019-01-12] MEDS: LISINOPRIL 10 MG TABLET PO SCH ×2 (12:57→15:17)
[2019-01-12] MEDS: LEVOTHYROXINE 100 MCG TABLET PO SCH ×2 (12:58→15:16)
--- NOTE | 2019-01-12 14:50 | EKG ---
[facility] [address] [place] [address] Test Date: 2019-01-11 Test Time: 23:19:45 Pat Name: TU ALVAREZ Department: Room: [facility] Gender: F Feltmaker: : 1960 Requested By: BRAYDEN GARCIA Order Number: [id number] Reading MD: Josh Noyola Measurements Intervals [place] Rate: 93 P: 22 IA: 146 QRS: 62 QRSD: 84 T: 41 QT: 360 QTc: 450 Interpretive Statements SINUS RHYTHM Electronically Signed On 01-22-2019 10:28:23 FREIGHT SORTER by Josh Noyola
[2019-01-12 15:00] VITALS: BP 128/86
[2019-01-12] MEDS: ASPIRIN ENTERIC COATED 81 MG TABLET.DR. PO SCH (15:16)
[2019-01-12] MEDS: levETIRAcetam 500 MG in IV DEXTROSE 5% 100ML 100 ML IV SCH ×2 (15:17→22:23)
--- NOTE | 2019-01-12 18:55 | PDOC2 ---
CONSULT Date of Consult Date of Consult DATE: 01/12/19 TIME: 18:52 Reason for Consult Reason for Consult: seizure activity History of Present Illness Reason for Visit: This patient is 58-year-old female with history of bipolar disorder, diabetes patient was previously treated for stroke and was discharged on . Patient lives with her sister at home. Patient presented with the episode concerning for seizure activity. Information obtained from patient's family she was having episode when she was confused her eye balls were staring she was not able to follow commands patient appeared to be confused and she also lost consciousness over several minutes. They denied any tongue bite or loss of better bowel control. Past Medical History Cardiovascular: HTN CENTRAL NERVOUS SYSTEM: Periperal neuropathy, Other GI: Other Psych: Addictions, Bipolar Endocrine: Diabetes, Hypothyroidism Past Surgical History Past Surgical History: Other Family History Family History: Hypertension Social History ALCOHOL: none Drugs: None Current Problem List Problem List Problems Medical Problems: (1) TIA (transient ischemic attack) Status: Acute Current Medications Current Medications Current Medications Sodium Chloride 1,000 ml @ 100 mls/hr Q10H IV Last administered on 01/12/19at 01:11; Start 01/11/19 at 23:45; Stop 01/12/19 at 09:44; Status DC Ondansetron HCl (Zofran) 4 mg PRN Q8HRS PRN IV NAUSEA/VOMITING; Start 01/12/19 at 02:45; Stop 01/13/19 at 02:44 Sodium Chloride 1,000 ml @ 100 mls/hr Q10H IV Last administered on 01/12/19at 11:13; Start 01/12/19 at 02:45; Stop 01/13/19 at 02:44 Info (FLU VACCINE SCREEN per RX) 1 each 1X ONCE MC ; Start 01/12/19 at 05:15; Stop 01/12/19 at 05:16; Status UNV Influenza Virus Vaccine (Afluria Trivalent [id number] Syringe) 0.5 ml ONCE ONCE VAX IM Last administered on 01/12/19at 09:09; Start 01/12/19 at 09:00; Stop at 09:01; Status DC Amlodipine Besylate (Norvasc) 10 mg DAILY PO Last administered on 01/12/19at 15: 17; Start 01/12/19 at 13:00 Atorvastatin Calcium (Lipitor) 40 mg QHS PO ; Start 01/12/19 at 21:00 Insulin Glargine (Lantus) 8 units QHS SQ ; Start 01/12/19 at 21:00 Levothyroxine Sodium (Synthroid) 100 mcg DAILY07 PO Last administered on at 15:16; Start 01/12/19 at 13:00 Lisinopril (Prinivil) 10 mg DAILY PO Last administered on 01/12/19at 15:17; Start 01/12/19 at 13:00 Quetiapine Fumarate (SEROquel) 100 mg QHS PO ; Start 01/12/19 at 21:00 Hydrochlorothiazide (Microzide) 12.5 mg DAILY PO Last administered on at 15:16; Start 01/12/19 at 13:00 Levetiracetam 500 mg/Dextrose 105 ml @ 420 mls/hr Q12HR IV Last administered on 01/12/19at 15:17; Start 01/12/19 at 15:30 Aspirin (Ecotrin) 81 mg DAILYWBKFT PO Last administered on 01/12/19at 15:16; Start 01/12/19 at 15:30 Active Scripts Active Lisinopril-Hctz 10-12.5 Mg Tab (Lisinopril/Hydrochlorothiazide) 1 Each Tablet 1 Tab PO DAILY 3 Days Aspirin Ec (Aspirin) 81 Mg Tablet.dr 1 Tab PO DAILY Lantus Solostar (Insulin Glargine,Hum.rec.anlog) 100 Unit/1 Ml Insuln.pen 8 Unit SQ QHS Amlodipine Besylate 10 Mg Tablet 10 Mg PO DAILY 30 Days Atorvastatin Calcium 40 Mg Tablet 1 Tab PO DAILY 30 Days Reported Trulicity (Dulaglutide) 1.5 Mg/0.5 Ml Pen.injctr 1.5 Mg SQ WEEKLY Seroquel (Quetiapine Fumarate) 300 Mg Tablet 1 Tab PO QHS Levothyroxine Sodium 100 Mcg Tablet 1 Tab PO DAILY Allergies Allergies: Coded Allergies: No Known Drug Allergies (Unverified , 12/09/16) Physical Exam Physical Exam General no acute distress. HEENT: Normocephalic and atraumatic. NECK: Supple without bruit Respiratory: Clear to auscultation bilaterally Heart: Regular rate and rhythm, S1S2 normal NEUROLOGIC: Mental status able to tell is name Able to follow simple commands. Cranial nerve equally reactive pupils, and intact extraocular movements. Does not participate in visual field testing. There is no facial asymmetry. Palate elevates and tongue protrudes in midline. Reflexes are 1+ with flexor plantar responses. Coordination no dysmetria Strength able to move all exts. Sensory exam is intact for light touch and dec to pinprick at ankles. Gait in bed. Vitals VITALS Vital Signs Date Time Temp Pulse Resp B/P (MAP) Pulse Ox O2 Delivery O2 Flow Rate FiO2 01/12/19 15:17 75 140/87 01/12/19 15:00 99.3 18 94 Room Air 99.3 Labs Labs Laboratory Tests Test 01/12/19 00:21 01/12/19 07:12 01/12/19 11:04 01/12/19 16:40 White Blood Count 5.5 x10^3/uL (4.0-11.0) Red Blood Count 4.69 x10^6/uL (3.50-5.40) Hemoglobin 12.2 g/dL (12.0-15.5) Hematocrit 38.2 % (36.0-47.0) Mean Corpuscular Volume 81 fL (79-100) Mean Corpuscular Hemoglobin 26 pg (25-35) Mean Corpuscular Hemoglobin Concent 32 g/dL (31-37) Red Cell Distribution Width 15.3 % (11.5-14.5) Platelet Count 243 x10^3/uL (140-400) Neutrophils (%) (Auto) 55 % (31-73) Lymphocytes (%) (Auto) 35 % (24-48) Monocytes (%) (Auto) 10 % (0-9) Eosinophils (%) (Auto) 0 % (0-3) Basophils (%) (Auto) 1 % (0-3) Neutrophils # (Auto) 3.0 x10^3uL (1.8-7.7) Lymphocytes # (Auto) 1.9 x10^3/uL (1.0-4.8) Monocytes # (Auto) 0.6 x10^3/uL (0.0-1.1) Eosinophils # (Auto) 0.0 x10^3/uL (0.0-0.7) Basophils # (Auto) 0.0 x10^3/uL (0.0-0.2) Prothrombin Time 12.9 SEC (11.7-14.0) Prothromb Time International Ratio 1.0 (0.8-1.1) Sodium Level 136 mmol/L (136-145) Potassium Level 3.5 mmol/L (3.5-5.1) Chloride Level 97 mmol/L (98-107) Carbon Dioxide Level 28 mmol/L (21-32) Anion Gap 11 (6-14) Blood Urea Nitrogen 20 mg/dL (7-20) Creatinine 1.1 mg/dL (0.6-1.0) Estimated GFR (Cockcroft-Gault) 61.5 BUN/Creatinine Ratio 18 (6-20) Glucose Level 328 mg/dL (70-99) Calcium Level 8.8 mg/dL (8.5-10.1) Magnesium Level 1.8 mg/dL (1.8-2.4) Total Bilirubin 0.5 mg/dL (0.2-1.0) Aspartate Amino Transf (AST/SGOT) 17 U/L (15-37) Alanine Aminotransferase (ALT/SGPT) 17 U/L (14-59) Alkaline Phosphatase 67 U/L (46-116) Total Protein 7.1 g/dL (6.4-8.2) Albumin 3.4 g/dL (3.4-5.0) Albumin/Globulin Ratio 0.9 (1.0-1.7) Glucose (Fingerstick) 194 mg/dL (70-99) 165 mg/dL (70-99) 199 mg/dL (70-99) Laboratory Tests Test 01/12/19 00:21 01/12/19 07:12 01/12/19 11:04 01/12/19 16:40 White Blood Count 5.5 x10^3/uL (4.0-11.0) Red Blood Count 4.69 x10^6/uL (3.50-5.40) Hemoglobin 12.2 g/dL (12.0-15.5) Hematocrit 38.2 % (36.0-47.0) Mean Corpuscular Volume 81 fL (79-100) Mean Corpuscular Hemoglobin 26 pg (25-35) Mean Corpuscular Hemoglobin Concent 32 g/dL (31-37) Red Cell Distribution Width 15.3 % (11.5-14.5) Platelet Count 243 x10^3/uL (140-400) Neutrophils (%) (Auto) 55 % (31-73) Lymphocytes (%) (Auto) 35 % (24-48) Monocytes (%) (Auto) 10 % (0-9) Eosinophils (%) (Auto) 0 % (0-3) Basophils (%) (Auto) 1 % (0-3) Neutrophils # (Auto) 3.0 x10^3uL (1.8-7.7) Lymphocytes # (Auto) 1.9 x10^3/uL (1.0-4.8) Monocytes # (Auto) 0.6 x10^3/uL (0.0-1.1) Eosinophils # (Auto) 0.0 x10^3/uL (0.0-0.7) Basophils # (Auto) 0.0 x10^3/uL (0.0-0.2) Prothrombin Time 12.9 SEC (11.7-14.0) Prothromb Time International Ratio 1.0 (0.8-1.1) Sodium Level 136 mmol/L (136-145) Potassium Level 3.5 mmol/L (3.5-5.1) Chloride Level 97 mmol/L (98-107) Carbon Dioxide Level 28 mmol/L (21-32) Anion Gap 11 (6-14) Blood Urea Nitrogen 20 mg/dL (7-20) Creatinine 1.1 mg/dL (0.6-1.0) Estimated GFR (Cockcroft-Gault) 61.5 BUN/Creatinine Ratio 18 (6-20) Glucose Level 328 mg/dL (70-99) Calcium Level 8.8 mg/dL (8.5-10.1) Magnesium Level 1.8 mg/dL (1.8-2.4) Total Bilirubin 0.5 mg/dL (0.2-1.0) Aspartate Amino Transf (AST/SGOT) 17 U/L (15-37) Alanine Aminotransferase (ALT/SGPT) 17 U/L (14-59) Alkaline Phosphatase 67 U/L (46-116) Total Protein 7.1 g/dL (6.4-8.2) Albumin 3.4 g/dL (3.4-5.0) Albumin/Globulin Ratio 0.9 (1.0-1.7) Glucose (Fingerstick) 194 mg/dL (70-99) 165 mg/dL (70-99) 199 mg/dL (70-99) Assessment/Plan Assessment/Plan This patient is 58-year-old female with history of bipolar disorder, diabetes patient was previously treated for stroke and was discharged on . Patient lives with her sister at home. Patient presented with the episode concerning for seizure activity. Information obtained from patient's family she was having episode when she was confused her eye balls were staring she was not able to follow commands patient appeared to be confused and she also lost consciousness over several minutes. They denied any tongue bite or loss of better bowel control. 58-year-old woman with past medical history of left subdural hematoma, previously treated for CVA, history of bipolar disorder with the episodes concerning for complex partial seizures. Will start patient on Keppra 500mg twice a day. Encephalopathy check for any infectious or metabolic etiology. History of bipolar disorder stable continue medication. Hypertension continue treat and monitor. PT OT speech evaluation. Patient was started on low-dose aspirin for stroke prevention. CT scan done brain shows changes for chronic small vessel ischemic disease. And and changes noted for a small areas of calcification in basal ganglia. There was no new acute area of hemorrhage noted. Old lacunar strokes noted. Continue medical management. Seizure precautions.Will Mri brain.Plan discussed with patient's family in detail ARTI RUSS MD Jan 12, 2019 18:55
[2019-01-12 19:31] VITALS: BP 124/72
[2019-01-12] MEDS: QUEtiapine 100 MG TABLET. PO SCH (20:26)
[2019-01-12] MEDS: ATORVASTATIN CALCIUM 40 MG TABLET. PO SCH (20:26)
[2019-01-12] MEDS: INSULIN GLARGINE 300 UNITS/3 ML INSULN.PEN. SQ SCH (21:40)
[2019-01-12 23:48] VITALS: BP 147/71
[2019-01-13 03:20] VITALS: BP 103/57
[2019-01-13] MEDS: LEVOTHYROXINE 100 MCG TABLET PO SCH (06:19)
[2019-01-13 07:15] VITALS: BP 126/70
[2019-01-13] MEDS: hydroCHLOROthiazide 12.5 MG CAPSULE PO SCH (07:44)
[2019-01-13] MEDS: LISINOPRIL 10 MG TABLET PO SCH (07:44)
[2019-01-13] MEDS: amLODIPine BESYLATE 10 MG TABLET PO SCH (07:44)
[2019-01-13] MEDS: ASPIRIN ENTERIC COATED 81 MG TABLET.DR. PO SCH (07:44)
[2019-01-13 08:11] LABS: BASO % 1 % (0-3); EOS % 0 % (0-3); HEMATOCRIT 39.6 % (36.0-47.0); HEMOGLOBIN 12.7 g/dL (12.0-15.5); LYMPH # 1.8 x10^3/uL (1.0-4.8); LYMPH % 36 % (24-48); MEAN CORPUSCULAR HEMOGLOBIN 26 pg (25-35); MEAN CORPUSCULAR HGB CONC 32 g/dL (31-37); MEAN CORPUSCULAR VOLUME 82 fL (79-100); MONO # 0.6 x10^3/uL (0.0-1.1); MONO % 12 % (0-9); NEUT # 2.6 x10^3uL (1.8-7.7); NEUT % 51 % (31-73); PLATELET COUNT 183 x10^3/uL (140-400); RED BLOOD COUNT 4.81 x10^6/uL (3.50-5.40); RED CELL DISTRIBUTION WIDTH 15.2 % (11.5-14.5); WHITE BLOOD COUNT 5.1 x10^3/uL (4.0-11.0)
[2019-01-13 08:23] LABS: CALCIUM 8.1 mg/dL (8.5-10.1); CREATININE 0.7 mg/dL (0.6-1.0); GFR 103.6; POTASSIUM 3.4 mmol/L (3.5-5.1)
[2019-01-13] MEDS: levETIRAcetam 500 MG in IV DEXTROSE 5% 100ML 100 ML IV SCH ×2 (08:25→21:25)
[2019-01-13] MEDS ORDERED: POTASSIUM CHLORIDE 20 MEQ TABLET.ER. PO ONE (08:30)
--- NOTE | 2019-01-13 08:34 | PDOC ---
PROGRESS NOTES Chief Complaint Chief Complaint A/P: Shaking - no hemorrhage on CT head. 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 - does have ASA on hold for 2 additional day, cont statin History of left subdural hematoma 2 years ago - stable Some hemorrhagic transformation of ischemic CVA - holding ASA Possible interval development of left basal ganglia stroke - will consult neurology Metabolic encephalopathy - likely related to medication noncompliance, elevated sugars, renal insufficiency probably prerenal dehydration, as well as lack of treatment of her psychiatric disorder and her recent stroke History of bipolar disease - cont seroquel History of alcohol abuse, none in several years - monitor Accel HTN - will restart meds FEN - NPO pending [employer] bedside PPX - SCDs FULL CODE Inpatient for acute encephalopathy in patient with recent CVA, she will need skilled placement on D/C, seems to have failed a home health trial at this point. At least 2 midnights to get her improved History of Present Illness History of Present Illness 58-year-old right-handed female with history of diabetes and bipolar disorder who was found shaking and unresponsive at home by her sister. Had CVA confirmed 01/05, discharged on 01/07 to home health with her sister. Previously seen 2 years ago for a small subdural hematoma not requiring surgery. CT head in ED did not demonstrate new CVA. Last admit with some hemorrhagic conversion of CVA was holding ASA. 01/12: She has no complaints, except hunger. She is verbalizing as much as she did with me last visit. Failed her bedside swallow with nursing. Oriented to person only, not able to get much more history out of her. Diet advanced per [employer] today. She is more talkative. Pleasant, eating. She still feels weak. No cough or chest pain. Plan: Cont neuro f/u - keppra [Prior admit: Worked with PT/OT/[employer], recommended home health on D/C. BP was difficult to control, requiring IV meds up until day of d/c. placed on 3 antihypertensives on d/c. She could not tolerate metformin due to vomiting, changed to insulin. Previously stopped GLP-1 due to pancreatitis, stop this as well. Echocardiogram as part of stroke workup: Left ventricle systolic function is normal. The Ejection Fraction is 60-65%. There is normal LV segmental wall motion. The interatrial septum is intact with no evidence for an atrial septal defect or patent foramen ovale as noted on 2-D or Doppler imaging. Injection of bubbles documented no interatrial shunt. mri: 1. Scattered small acute or subacute infarct within the bilateral cerebral white matter and the right cerebellum. The majority of these lesions appear to be subacute based on signal characteristics. The acute lesions are located within the right frontal lobe and right cerebellum. 2. Acute or subacute intraparenchymal hemorrhage or hemorrhagic transformation of an infarct within the left basal ganglia and adjacent periventricular white matter. 3. Suspected chronic hemorrhage or hemorrhagic infarct within the right caudate nucleus and chronic lacunar infarcts within the left caudate nucleus, left thalamus and right jomar. 4. Scattered areas of signal change within the cerebral white matter, likely due to chronic small vessel disease] Vitals Vitals Vital Signs Date Time Temp Pulse Resp B/P (MAP) Pulse Ox O2 Delivery O2 Flow Rate FiO2 01/13/19 07:50 Room Air 01/13/19 07:15 98.2 70 18 126/70 (88) 97 98.2 Physical Exam General: Alert, Cooperative, No acute distress Lungs: Clear Extremities: No clubbing, No cyanosis, No edema, Normal pulses, No tenderness/ swelling Labs LABS Laboratory Tests Test 01/12/19 11:04 01/12/19 16:40 01/12/19 20:45 01/13/19 06:30 Glucose (Fingerstick) 165 mg/dL (70-99) 199 mg/dL (70-99) 153 mg/dL (70-99) White Blood Count 5.1 x10^3/uL (4.0-11.0) Red Blood Count 4.81 x10^6/uL (3.50-5.40) Hemoglobin 12.7 g/dL (12.0-15.5) Hematocrit 39.6 % (36.0-47.0) Mean Corpuscular Volume 82 fL (79-100) Mean Corpuscular Hemoglobin 26 pg (25-35) Mean Corpuscular Hemoglobin Concent 32 g/dL (31-37) Red Cell Distribution Width 15.2 % (11.5-14.5) Platelet Count 183 x10^3/uL (140-400) Neutrophils (%) (Auto) 51 % (31-73) Lymphocytes (%) (Auto) 36 % (24-48) Monocytes (%) (Auto) 12 % (0-9) Eosinophils (%) (Auto) 0 % (0-3) Basophils (%) (Auto) 1 % (0-3) Neutrophils # (Auto) 2.6 x10^3uL (1.8-7.7) Lymphocytes # (Auto) 1.8 x10^3/uL (1.0-4.8) Monocytes # (Auto) 0.6 x10^3/uL (0.0-1.1) Eosinophils # (Auto) 0.0 x10^3/uL (0.0-0.7) Basophils # (Auto) 0.0 x10^3/uL (0.0-0.2) Sodium Level 138 mmol/L (136-145) Potassium Level 3.4 mmol/L (3.5-5.1) Chloride Level 102 mmol/L (98-107) Carbon Dioxide Level 24 mmol/L (21-32) Anion Gap 12 (6-14) Blood Urea Nitrogen 9 mg/dL (7-20) Creatinine 0.7 mg/dL (0.6-1.0) Estimated GFR (Cockcroft-Gault) 103.6 Glucose Level 134 mg/dL (70-99) Calcium Level 8.1 mg/dL (8.5-10.1) Test 01/13/19 07:09 Glucose (Fingerstick) 121 mg/dL (70-99) Assessment and Plan Assessmemt and Plan Problems Medical Problems: (1) TIA (transient ischemic attack) Status: Acute Comment Review of Relevant I have reviewed the following items love (where applicable) has been applied. Labs Laboratory Tests Test 01/12/19 00:21 01/12/19 07:12 01/12/19 11:04 01/12/19 16:40 White Blood Count 5.5 x10^3/uL (4.0-11.0) Red Blood Count 4.69 x10^6/uL (3.50-5.40) Hemoglobin 12.2 g/dL (12.0-15.5) Hematocrit 38.2 % (36.0-47.0) Mean Corpuscular Volume 81 fL (79-100) Mean Corpuscular Hemoglobin 26 pg (25-35) Mean Corpuscular Hemoglobin Concent 32 g/dL (31-37) Red Cell Distribution Width 15.3 % (11.5-14.5) Platelet Count 243 x10^3/uL (140-400) Neutrophils (%) (Auto) 55 % (31-73) Lymphocytes (%) (Auto) 35 % (24-48) Monocytes (%) (Auto) 10 % (0-9) Eosinophils (%) (Auto) 0 % (0-3) Basophils (%) (Auto) 1 % (0-3) Neutrophils # (Auto) 3.0 x10^3uL (1.8-7.7) Lymphocytes # (Auto) 1.9 x10^3/uL (1.0-4.8) Monocytes # (Auto) 0.6 x10^3/uL (0.0-1.1) Eosinophils # (Auto) 0.0 x10^3/uL (0.0-0.7) Basophils # (Auto) 0.0 x10^3/uL (0.0-0.2) Prothrombin Time 12.9 SEC (11.7-14.0) Prothromb Time International Ratio 1.0 (0.8-1.1) Sodium Level 136 mmol/L (136-145) Potassium Level 3.5 mmol/L (3.5-5.1) Chloride Level 97 mmol/L (98-107) Carbon Dioxide Level 28 mmol/L (21-32) Anion Gap 11 (6-14) Blood Urea Nitrogen 20 mg/dL (7-20) Creatinine 1.1 mg/dL (0.6-1.0) Estimated GFR (Cockcroft-Gault) 61.5 BUN/Creatinine Ratio 18 (6-20) Glucose Level 328 mg/dL (70-99) Calcium Level 8.8 mg/dL (8.5-10.1) Magnesium Level 1.8 mg/dL (1.8-2.4) Total Bilirubin 0.5 mg/dL (0.2-1.0) Aspartate Amino Transf (AST/SGOT) 17 U/L (15-37) Alanine Aminotransferase (ALT/SGPT) 17 U/L (14-59) Alkaline Phosphatase 67 U/L (46-116) Total Protein 7.1 g/dL (6.4-8.2) Albumin 3.4 g/dL (3.4-5.0) Albumin/Globulin Ratio 0.9 (1.0-1.7) Glucose (Fingerstick) 194 mg/dL (70-99) 165 mg/dL (70-99) 199 mg/dL (70-99) Test 01/12/19 20:45 01/13/19 06:30 01/13/19 07:09 Glucose (Fingerstick) 153 mg/dL (70-99) 121 mg/dL (70-99) White Blood Count 5.1 x10^3/uL (4.0-11.0) Red Blood Count 4.81 x10^6/uL (3.50-5.40) Hemoglobin 12.7 g/dL (12.0-15.5) Hematocrit 39.6 % (36.0-47.0) Mean Corpuscular Volume 82 fL (79-100) Mean Corpuscular Hemoglobin 26 pg (25-35) Mean Corpuscular Hemoglobin Concent 32 g/dL (31-37) Red Cell Distribution Width 15.2 % (11.5-14.5) Platelet Count 183 x10^3/uL (140-400) Neutrophils (%) (Auto) 51 % (31-73) Lymphocytes (%) (Auto) 36 % (24-48) Monocytes (%) (Auto) 12 % (0-9) Eosinophils (%) (Auto) 0 % (0-3) Basophils (%) (Auto) 1 % (0-3) Neutrophils # (Auto) 2.6 x10^3uL (1.8-7.7) Lymphocytes # (Auto) 1.8 x10^3/uL (1.0-4.8) Monocytes # (Auto) 0.6 x10^3/uL (0.0-1.1) Eosinophils # (Auto) 0.0 x10^3/uL (0.0-0.7) Basophils # (Auto) 0.0 x10^3/uL (0.0-0.2) Sodium Level 138 mmol/L (136-145) Potassium Level 3.4 mmol/L (3.5-5.1) Chloride Level 102 mmol/L (98-107) Carbon Dioxide Level 24 mmol/L (21-32) Anion Gap 12 (6-14) Blood Urea Nitrogen 9 mg/dL (7-20) Creatinine 0.7 mg/dL (0.6-1.0) Estimated GFR (Cockcroft-Gault) 103.6 Glucose Level 134 mg/dL (70-99) Calcium Level 8.1 mg/dL (8.5-10.1) Laboratory Tests Test 01/12/19 11:04 01/12/19 16:40 01/12/19 20:45 01/13/19 06:30 Glucose (Fingerstick) 165 mg/dL (70-99) 199 mg/dL (70-99) 153 mg/dL (70-99) White Blood Count 5.1 x10^3/uL (4.0-11.0) Red Blood Count 4.81 x10^6/uL (3.50-5.40) Hemoglobin 12.7 g/dL (12.0-15.5) Hematocrit 39.6 % (36.0-47.0) Mean Corpuscular Volume 82 fL (79-100) Mean Corpuscular Hemoglobin 26 pg (25-35) Mean Corpuscular Hemoglobin Concent 32 g/dL (31-37) Red Cell Distribution Width 15.2 % (11.5-14.5) Platelet Count 183 x10^3/uL (140-400) Neutrophils (%) (Auto) 51 % (31-73) Lymphocytes (%) (Auto) 36 % (24-48) Monocytes (%) (Auto) 12 % (0-9) Eosinophils (%) (Auto) 0 % (0-3) Basophils (%) (Auto) 1 % (0-3) Neutrophils # (Auto) 2.6 x10^3uL (1.8-7.7) Lymphocytes # (Auto) 1.8 x10^3/uL (1.0-4.8) Monocytes # (Auto) 0.6 x10^3/uL (0.0-1.1) Eosinophils # (Auto) 0.0 x10^3/uL (0.0-0.7) Basophils # (Auto) 0.0 x10^3/uL (0.0-0.2) Sodium Level 138 mmol/L (136-145) Potassium Level 3.4 mmol/L (3.5-5.1) Chloride Level 102 mmol/L (98-107) Carbon Dioxide Level 24 mmol/L (21-32) Anion Gap 12 (6-14) Blood Urea Nitrogen 9 mg/dL (7-20) Creatinine 0.7 mg/dL (0.6-1.0) Estimated GFR (Cockcroft-Gault) 103.6 Glucose Level 134 mg/dL (70-99) Calcium Level 8.1 mg/dL (8.5-10.1) Test 01/13/19 07:09 Glucose (Fingerstick) 121 mg/dL (70-99) Medications Current Medications Sodium Chloride 1,000 ml @ 100 mls/hr Q10H IV Last administered on 01/12/19at 01:11; Start 01/11/19 at 23:45; Stop 01/12/19 at 09:44; Status DC Ondansetron HCl (Zofran) 4 mg PRN Q8HRS PRN IV NAUSEA/VOMITING; Start 01/12/19 at 02:45; Stop 01/13/19 at 02:44; Status DC Sodium Chloride 1,000 ml @ 100 mls/hr Q10H IV Last administered on 01/12/19at 21:34; Start 01/12/19 at 02:45; Stop 01/13/19 at 02:44; Status DC Info (FLU VACCINE SCREEN per RX) 1 each 1X ONCE MC ; Start 01/12/19 at 05:15; Stop 01/12/19 at 05:16; Status UNV Influenza Virus Vaccine (Afluria Trivalent [id number] Syringe) 0.5 ml ONCE ONCE VAX IM Last administered on 01/12/19at 09:09; Start 01/12/19 at 09:00; Stop at 09:01; Status DC Amlodipine Besylate (Norvasc) 10 mg DAILY PO Last administered on 01/12/19at 15: 17; Start 01/12/19 at 13:00 Atorvastatin Calcium (Lipitor) 40 mg QHS PO ; Start 01/12/19 at 21:00 Insulin Glargine (Lantus) 8 units QHS SQ Last administered on 01/12/19at 21:40; Start 01/12/19 at 21:00 Levothyroxine Sodium (Synthroid) 100 mcg DAILY07 PO Last administered on at 15:16; Start 01/12/19 at 13:00 Lisinopril (Prinivil) 10 mg DAILY PO Last administered on 01/12/19at 15:17; Start 01/12/19 at 13:00 Quetiapine Fumarate (SEROquel) 100 mg QHS PO ; Start 01/12/19 at 21:00 Hydrochlorothiazide (Microzide) 12.5 mg DAILY PO Last administered on at 15:16; Start 01/12/19 at 13:00 Levetiracetam 500 mg/Dextrose 105 ml @ 420 mls/hr Q12HR IV Last administered on 01/13/19at 08:25; Start 01/12/19 at 15:30 Aspirin (Ecotrin) 81 mg DAILYWBKFT PO Last administered on 01/12/19at 15:16; Start 01/12/19 at 15:30 Active Scripts Active Lisinopril-Hctz 10-12.5 Mg Tab (Lisinopril/Hydrochlorothiazide) 1 Each Tablet 1 Tab PO DAILY 3 Days Aspirin Ec (Aspirin) 81 Mg Tablet.dr 1 Tab PO DAILY Lantus Solostar (Insulin Glargine,Hum.rec.anlog) 100 Unit/1 Ml Insuln.pen 8 Unit SQ QHS Amlodipine Besylate 10 Mg Tablet 10 Mg PO DAILY 30 Days Atorvastatin Calcium 40 Mg Tablet 1 Tab PO DAILY 30 Days Reported Trulicity (Dulaglutide) 1.5 Mg/0.5 Ml Pen.injctr 1.5 Mg SQ WEEKLY Seroquel (Quetiapine Fumarate) 300 Mg Tablet 1 Tab PO QHS Levothyroxine Sodium 100 Mcg Tablet 1 Tab PO DAILY Vitals/I & O Vital Sign - Last 24 Hours 01/12/19 01/12/19 01/12/19 01/12/19 11:00 15:00 15:17 15:17 Temp 98.7 99.3 98.7 99.3 Pulse 75 84 75 75 Resp 18 18 B/P (MAP) 140/87 (104) 128/86 (100) 140/87 140/87 Pulse Ox 92 94 O2 Delivery Room Air Room Air 01/12/19 01/12/19 01/12/19 01/13/19 19:31 20:15 23:48 03:20 Temp 99.1 99.0 99.6 99.1 99.0 99.6 Pulse 82 81 82 Resp 18 18 18 B/P (MAP) 124/72 (89) 147/71 (96) 103/57 (72) Pulse Ox 95 99 97 O2 Delivery Room Air Room Air Room Air Room Air 01/13/19 01/13/19 07:15 07:50 Temp 98.2 98.2 Pulse 70 Resp 18 B/P (MAP) 126/70 (88) Pulse Ox 97 O2 Delivery Room Air Room Air ADAMARIS HOPSON MD Jan 13, 2019 08:34
[2019-01-13] MEDS: POTASSIUM CHLORIDE 10MEQ 100 ML IV SCH ×2 (09:31→11:09)
[2019-01-13 11:08] VITALS: BP 131/84
--- NOTE | 2019-01-13 11:34 | NUR ---
Bedside Swallow Evaluation completed. Please refer to full report for additional information. Impressions: Mild oropharyngeal dysphagia w/ delay in initiation of swallow of honey thick liquids and puree (note that pt had delays on prior bedside swallow evaluation 01/06). Pt had 2 instances of wet phonation w/ trials of thin liquids. Honey thick liquids appear to eliminate s/s aspiration. Pt appears at low risk of aspiration w/ modified diet of puree and honey thick liquids. Recommendations: Dysphagia I diet w/ honey thick liquids, no straws, swallow precautions posted in room, ST f/u for dysphagia. D/w RN; precautions posted in room
[2019-01-13 15:00] VITALS: BP 139/85
[2019-01-13 19:26] VITALS: BP 139/76
--- NOTE | 2019-01-13 20:06 | PDOC ---
PROGRESS NOTES Assessment Problems Medical Problems: (1) TIA (transient ischemic attack) Status: Acute Plan 58-year-old woman with past medical history of left subdural hematoma, previously treated for CVA, history of bipolar disorder with the episodes concerning for complex partial seizures. Will start patient on Keppra 500mg twice a day. Encephalopathy check for any infectious or metabolic etiology. History of bipolar disorder stable continue medication. Hypertension continue treat and monitor. PT OT speech evaluation. Patient was started on low-dose aspirin for stroke prevention. CT scan done brain shows changes for chronic small vessel ischemic disease. and changes noted for a small areas of calcification in basal ganglia. There was no new acute area of hemorrhage noted. Old lacunar strokes noted. No new clinical seizures noted. Continue medical management. Seizure precautions.Will Mri brain.Plan discussed with patient's family in detail Subjective Patient is resting in bed. She is feeling better. No new clinical seizures noted. Objective Vital Signs Date Time Temp Pulse Resp B/P (MAP) Pulse Ox O2 Delivery O2 Flow Rate FiO2 01/13/19 19:26 99.2 78 18 139/76 (97) 92 Room Air 99.2 Intake and Output 01/13/19 06:59 # Voids 2 PHYSICAL EXAM General no acute distress. HEENT: Normocephalic and atraumatic. NECK: Supple without bruit Respiratory: Clear to auscultation bilaterally Heart: Regular rate and rhythm, S1S2 normal NEUROLOGIC: Mental status able to tell is name Able to follow simple commands. Cranial nerve equally reactive pupils, and intact extraocular movements. Does not participate in visual field testing. There is no facial asymmetry. Palate elevates and tongue protrudes in midline. Reflexes are 1+ with flexor plantar responses. Coordination no dysmetria Strength able to move all exts. Sensory exam is intact for light touch and dec to pinprick at ankles. Gait in bed. Review of Relevant I have reviewed the following items love (where applicable) has been applied. Labs Laboratory Tests Test 01/12/19 00:21 01/12/19 07:12 01/12/19 11:04 01/12/19 16:40 White Blood Count 5.5 x10^3/uL (4.0-11.0) Red Blood Count 4.69 x10^6/uL (3.50-5.40) Hemoglobin 12.2 g/dL (12.0-15.5) Hematocrit 38.2 % (36.0-47.0) Mean Corpuscular Volume 81 fL (79-100) Mean Corpuscular Hemoglobin 26 pg (25-35) Mean Corpuscular Hemoglobin Concent 32 g/dL (31-37) Red Cell Distribution Width 15.3 % (11.5-14.5) Platelet Count 243 x10^3/uL (140-400) Neutrophils (%) (Auto) 55 % (31-73) Lymphocytes (%) (Auto) 35 % (24-48) Monocytes (%) (Auto) 10 % (0-9) Eosinophils (%) (Auto) 0 % (0-3) Basophils (%) (Auto) 1 % (0-3) Neutrophils # (Auto) 3.0 x10^3uL (1.8-7.7) Lymphocytes # (Auto) 1.9 x10^3/uL (1.0-4.8) Monocytes # (Auto) 0.6 x10^3/uL (0.0-1.1) Eosinophils # (Auto) 0.0 x10^3/uL (0.0-0.7) Basophils # (Auto) 0.0 x10^3/uL (0.0-0.2) Prothrombin Time 12.9 SEC (11.7-14.0) Prothromb Time International Ratio 1.0 (0.8-1.1) Sodium Level 136 mmol/L (136-145) Potassium Level 3.5 mmol/L (3.5-5.1) Chloride Level 97 mmol/L (98-107) Carbon Dioxide Level 28 mmol/L (21-32) Anion Gap 11 (6-14) Blood Urea Nitrogen 20 mg/dL (7-20) Creatinine 1.1 mg/dL (0.6-1.0) Estimated GFR (Cockcroft-Gault) 61.5 BUN/Creatinine Ratio 18 (6-20) Glucose Level 328 mg/dL (70-99) Calcium Level 8.8 mg/dL (8.5-10.1) Magnesium Level 1.8 mg/dL (1.8-2.4) Total Bilirubin 0.5 mg/dL (0.2-1.0) Aspartate Amino Transf (AST/SGOT) 17 U/L (15-37) Alanine Aminotransferase (ALT/SGPT) 17 U/L (14-59) Alkaline Phosphatase 67 U/L (46-116) Total Protein 7.1 g/dL (6.4-8.2) Albumin 3.4 g/dL (3.4-5.0) Albumin/Globulin Ratio 0.9 (1.0-1.7) Glucose (Fingerstick) 194 mg/dL (70-99) 165 mg/dL (70-99) 199 mg/dL (70-99) Test 01/12/19 20:45 01/13/19 06:30 01/13/19 07:09 01/13/19 11:05 Glucose (Fingerstick) 153 mg/dL (70-99) 121 mg/dL (70-99) 153 mg/dL (70-99) White Blood Count 5.1 x10^3/uL (4.0-11.0) Red Blood Count 4.81 x10^6/uL (3.50-5.40) Hemoglobin 12.7 g/dL (12.0-15.5) Hematocrit 39.6 % (36.0-47.0) Mean Corpuscular Volume 82 fL (79-100) Mean Corpuscular Hemoglobin 26 pg (25-35) Mean Corpuscular Hemoglobin Concent 32 g/dL (31-37) Red Cell Distribution Width 15.2 % (11.5-14.5) Platelet Count 183 x10^3/uL (140-400) Neutrophils (%) (Auto) 51 % (31-73) Lymphocytes (%) (Auto) 36 % (24-48) Monocytes (%) (Auto) 12 % (0-9) Eosinophils (%) (Auto) 0 % (0-3) Basophils (%) (Auto) 1 % (0-3) Neutrophils # (Auto) 2.6 x10^3uL (1.8-7.7) Lymphocytes # (Auto) 1.8 x10^3/uL (1.0-4.8) Monocytes # (Auto) 0.6 x10^3/uL (0.0-1.1) Eosinophils # (Auto) 0.0 x10^3/uL (0.0-0.7) Basophils # (Auto) 0.0 x10^3/uL (0.0-0.2) Sodium Level 138 mmol/L (136-145) Potassium Level 3.4 mmol/L (3.5-5.1) Chloride Level 102 mmol/L (98-107) Carbon Dioxide Level 24 mmol/L (21-32) Anion Gap 12 (6-14) Blood Urea Nitrogen 9 mg/dL (7-20) Creatinine 0.7 mg/dL (0.6-1.0) Estimated GFR (Cockcroft-Gault) 103.6 Glucose Level 134 mg/dL (70-99) Calcium Level 8.1 mg/dL (8.5-10.1) Magnesium Level 1.9 mg/dL (1.8-2.4) Test 01/13/19 16:34 Glucose (Fingerstick) 188 mg/dL (70-99) Laboratory Tests Test 01/12/19 20:45 01/13/19 06:30 01/13/19 07:09 01/13/19 11:05 Glucose (Fingerstick) 153 mg/dL (70-99) 121 mg/dL (70-99) 153 mg/dL (70-99) White Blood Count 5.1 x10^3/uL (4.0-11.0) Red Blood Count 4.81 x10^6/uL (3.50-5.40) Hemoglobin 12.7 g/dL (12.0-15.5) Hematocrit 39.6 % (36.0-47.0) Mean Corpuscular Volume 82 fL (79-100) Mean Corpuscular Hemoglobin 26 pg (25-35) Mean Corpuscular Hemoglobin Concent 32 g/dL (31-37) Red Cell Distribution Width 15.2 % (11.5-14.5) Platelet Count 183 x10^3/uL (140-400) Neutrophils (%) (Auto) 51 % (31-73) Lymphocytes (%) (Auto) 36 % (24-48) Monocytes (%) (Auto) 12 % (0-9) Eosinophils (%) (Auto) 0 % (0-3) Basophils (%) (Auto) 1 % (0-3) Neutrophils # (Auto) 2.6 x10^3uL (1.8-7.7) Lymphocytes # (Auto) 1.8 x10^3/uL (1.0-4.8) Monocytes # (Auto) 0.6 x10^3/uL (0.0-1.1) Eosinophils # (Auto) 0.0 x10^3/uL (0.0-0.7) Basophils # (Auto) 0.0 x10^3/uL (0.0-0.2) Sodium Level 138 mmol/L (136-145) Potassium Level 3.4 mmol/L (3.5-5.1) Chloride Level 102 mmol/L (98-107) Carbon Dioxide Level 24 mmol/L (21-32) Anion Gap 12 (6-14) Blood Urea Nitrogen 9 mg/dL (7-20) Creatinine 0.7 mg/dL (0.6-1.0) Estimated GFR (Cockcroft-Gault) 103.6 Glucose Level 134 mg/dL (70-99) Calcium Level 8.1 mg/dL (8.5-10.1) Magnesium Level 1.9 mg/dL (1.8-2.4) Test 01/13/19 16:34 Glucose (Fingerstick) 188 mg/dL (70-99) Medications Current Medications Sodium Chloride 1,000 ml @ 100 mls/hr Q10H IV Last administered on 01/12/19at 01:11; Start 01/11/19 at 23:45; Stop 01/12/19 at 09:44; Status DC Ondansetron HCl (Zofran) 4 mg PRN Q8HRS PRN IV NAUSEA/VOMITING; Start 01/12/19 at 02:45; Stop 01/13/19 at 02:44; Status DC Sodium Chloride 1,000 ml @ 100 mls/hr Q10H IV Last administered on 01/12/19at 21:34; Start 01/12/19 at 02:45; Stop 01/13/19 at 02:44; Status DC Info (FLU VACCINE SCREEN per RX) 1 each 1X ONCE MC ; Start 01/12/19 at 05:15; Stop 01/12/19 at 05:16; Status UNV Influenza Virus Vaccine (Afluria Trivalent [id number] Syringe) 0.5 ml ONCE ONCE VAX IM Last administered on 01/12/19at 09:09; Start 01/12/19 at 09:00; Stop at 09:01; Status DC Amlodipine Besylate (Norvasc) 10 mg DAILY PO Last administered on 01/12/19at 15: 17; Start 01/12/19 at 13:00 Atorvastatin Calcium (Lipitor) 40 mg QHS PO ; Start 01/12/19 at 21:00 Insulin Glargine (Lantus) 8 units QHS SQ Last administered on 01/12/19at 21:40; Start 01/12/19 at 21:00 Levothyroxine Sodium (Synthroid) 100 mcg DAILY07 PO Last administered on 15:16; Start 01/12/19 at 13:00 Lisinopril (Prinivil) 10 mg DAILY PO Last administered on 01/12/19 15:17; Start 01/12/19 at 13:00 Quetiapine Fumarate (SEROquel) 100 mg QHS PO ; Start 01/12/19 at 21:00 Hydrochlorothiazide (Microzide) 12.5 mg DAILY PO Last administered on at 15:16; Start 01/12/19 at 13:00 Levetiracetam 500 mg/Dextrose 105 ml @ 420 mls/hr Q12HR IV Last administered on 01/13/19 08:25; Start 01/12/19 at 15:30 Aspirin (Ecotrin) 81 mg DAILYWBKFT PO Last administered on 01/12/19at 15:16; Start 01/12/19 at 15:30 Potassium Chloride (Klor-Con) 40 meq 1X ONCE PO ; Start 01/13/19 at 08:30; Stop 01/13/19 at 08:33; Status DC Potassium Chloride/Water 100 ml @ 100 mls/hr Q1H IV Last administered on at 11:09; Start 01/13/19 at 09:00; Stop 01/13/19 at 10:59; Status DC Active Scripts Active Lisinopril-Hctz 10-12.5 Mg Tab (Lisinopril/Hydrochlorothiazide) 1 Each Tablet 1 Tab PO DAILY 3 Days Aspirin Ec (Aspirin) 81 Mg Tablet.dr 1 Tab PO DAILY Lantus Solostar (Insulin Glargine,Hum.rec.anlog) 100 Unit/1 Ml Insuln.pen 8 Unit SQ QHS Amlodipine Besylate 10 Mg Tablet 10 Mg PO DAILY 30 Days Atorvastatin Calcium 40 Mg Tablet 1 Tab PO DAILY 30 Days Reported Trulicity (Dulaglutide) 1.5 Mg/0.5 Ml Pen.injctr 1.5 Mg SQ WEEKLY Seroquel (Quetiapine Fumarate) 300 Mg Tablet 1 Tab PO QHS Levothyroxine Sodium 100 Mcg Tablet 1 Tab PO DAILY Vitals/I & O Vital Sign - Last 24 Hours 01/12/19 01/12/19 01/13/19 01/13/19 20:15 23:48 03:20 07:15 Temp 99.0 99.6 98.2 99.0 99.6 98.2 Pulse 81 82 70 Resp 18 18 B/P (MAP) 147/71 (96) 103/57 (72) 126/70 (88) Pulse Ox 99 97 97 O2 Delivery Room Air Room Air Room Air Room Air 01/13/19 01/13/19 01/13/19 01/13/19 07:50 11:08 15:00 19:26 Temp 99.7 98.4 99.2 99.7 98.4 99.2 Pulse 79 79 78 Resp 18 B/P (MAP) 131/84 (100) 139/85 (103) 139/76 (97) Pulse Ox 99 95 92 O2 Delivery Room Air Room Air Room Air Room Air ARTI RUSS MD Jan 13, 2019 20:06
[2019-01-13] MEDS: ATORVASTATIN CALCIUM 40 MG TABLET. PO SCH (21:25)
[2019-01-13] MEDS: QUEtiapine 100 MG TABLET. PO SCH (21:25)
[2019-01-13] MEDS: INSULIN GLARGINE 300 UNITS/3 ML INSULN.PEN. SQ SCH (21:34)
--- NOTE | 2019-01-13 22:37 | NUR ---
SCDs originally placed on pt but pt up frequently, setting off bed alarm. Removed for fall risk. Addendum: 01/13/19 at 2241 by RONA SIDDIQUI RN Amended: Links added.
[2019-01-13 23:30] VITALS: BP 108/82
[2019-01-14 03:01] VITALS: BP 117/77
[2019-01-14 04:52] LABS: CALCIUM 8.5 mg/dL (8.5-10.1); CREATININE 0.8 mg/dL (0.6-1.0); GFR 88.8; POTASSIUM 3.3 mmol/L (3.5-5.1)
[2019-01-14] MEDS: LEVOTHYROXINE 100 MCG TABLET PO SCH (06:00)
[2019-01-14 07:00] VITALS: BP 118/86
--- NOTE | 2019-01-14 08:32 | RAD ---
MRI Brain without contrast History:SEIZURE Technique: Multiplanar, multisequential noncontrast MR imaging was performed of the brain. Comparison: 01/04/2019 Findings: There are again some scattered foci of diffusion signal abnormality of the supratentorial parenchyma bilaterally with some variable change, most foci seen previously less intense on diffusion sequence on this exam and previously seen small focus of the right cerebellum not visualized on this exam. However there is new small 0.4 cm focus of somewhat subtle restricted diffusion of the left frontal deep white matter axial image 14 and also a new focus of the right parietal white matter axial image 15 about 0.9 cm. There is again small focus of parenchymal hemorrhage of the left basal ganglia unchanged in size, also some petechial type hemorrhage extending to the left arndt radiata unchanged. There is no new midline shift or new extra-axial fluid collection. There are again old lacunar infarcts scattered in the right frontal parietal white matter, left periventricular white matter, bilateral basal ganglia, and right jomar. There is again scattered [id number] T2 and FLAIR hyperintense signal abnormality of the supratentorial parenchyma, again more confluent signal change about left basal ganglia infarct. Ventricular size is stable, within normal limits. There is right rodolfo bullosa. There is patchy minimal bilateral ethmoid air cell mucosal thickening. There is minimal thickening of the mastoid air cells. There is preservation of the major arterial intracranial flow voids at the skull base. Impression: 1. Compared with the 01/04/2019 exam, there are new small foci of restricted diffusion, evidence of recent acute/early subacute infarcts of the left frontal and right parietal white matter. Other previously seen foci of recent subacute infarcts are less apparent. There is again small focus of parenchymal hemorrhage of the left basal ganglia and petechial type hemorrhage of the left arndt radiata unchanged in appearance. There are again other old lacunar infarcts as stated, also other scattered T2 and FLAIR hyperintense abnormality probably due to chronic microvessel ischemic disease. FOR INTERNAL CODING PURPOSES Critical result: Findings discussed with patient's nurse Sylvia at 01/14/2019 8:29 AM. RESULT CODE: (C) Electronically signed by: Luis F Bradley MD (01/14/2019 8:29 AM) [id number]
[2019-01-14] MEDS: hydroCHLOROthiazide 12.5 MG CAPSULE PO SCH (08:47)
[2019-01-14] MEDS: LISINOPRIL 10 MG TABLET PO SCH (08:48)
[2019-01-14] MEDS: amLODIPine BESYLATE 10 MG TABLET PO SCH (08:48)
[2019-01-14] MEDS: levETIRAcetam 500 MG in IV DEXTROSE 5% 100ML 100 ML IV SCH ×2 (08:48→20:46)
[2019-01-14] MEDS: ASPIRIN ENTERIC COATED 81 MG TABLET.DR. PO SCH (08:48)
[2019-01-14 11:00] VITALS: BP 117/74
[2019-01-14 12:26] LABS: FREE T4 0.67 ng/dL (0.76-1.46); THYROID STIM HORMONE (TSH) 97.287 uIU/mL (0.358-3.74)
--- NOTE | 2019-01-14 13:11 | NUR ---
ROSS following pt for anticipated dc needs. Chart reviewed and DW RN. Pt was recently discharged home with Ruby JASMINE. PT/OT recommends SNU. ROSS phoned pt's sisterCyndie, phone: [phone] and discussed SNU options and insurance coverage. Pt's sister was interested in SNU [place] but then agreeable with [facility]. Pt's sister also requested information regarding home care services and ROSS informed her to call [facility] to see if pt is eligible for home care services through her Medicaid. Pt's sister verbalized understanding. ROSS phoned and faxed referral to [facility]. Discussed with sister insurance auth is needed before dc to SNU. Pt admission and acceptance pending. Will continue to follow.
--- NOTE | 2019-01-14 13:31 | PDOC ---
PROGRESS NOTES Chief Complaint Chief Complaint A/P: Shaking - no hemorrhage on CT head. 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 History of left subdural hematoma 2 years ago - stable Some hemorrhagic transformation of ischemic CVA - holding ASA Possible interval development of left basal ganglia stroke - will consult neurology Metabolic encephalopathy - likely related to medication noncompliance, elevated sugars, renal insufficiency probably prerenal dehydration, as well as lack of treatment of her psychiatric disorder and her recent stroke History of bipolar disease - cont seroquel History of alcohol abuse, none in several years - monitor Accel HTN - will restart meds FEN - NPO pending [employer]IST[employer] bedside PPX - SCDs FULL CODE Inpatient for acute encephalopathy in patient with recent CVA, she will need skilled placement on D/C, seems to have failed a home health trial at this point. At least 2 midnights to get her improved History of Present Illness History of Present Illness 58-year-old right-handed female with history of diabetes and bipolar disorder who was found shaking and unresponsive at home by her sister. Had CVA confirmed 01/05, discharged on 01/07 to home health with her sister. Previously seen 2 years ago for a small subdural hematoma not requiring surgery. CT head in ED did not demonstrate new CVA. Last admit with some hemorrhagic conversion of CVA was holding ASA. Subacute multiple left frontal and right parietal WM infarcts. Small IPH at left BG and arndt radiata. Seizure, new. Hx of left SDH. Old lacunar infarct. Metabolic encephalopathy. 01/12: She has no complaints, except hunger. She is verbalizing as much as she did with me last visit. Failed her bedside swallow with nursing. Oriented to person only, not able to get much more history out of her. 01/14 Diet advanced , feels weak. No cough or chest pain. SEIZURE APPEARS NEW , LOW K 3.3 willl replace Plan: Cont neuro f/u - keppra [Prior admit: Worked with PT/OT/[employer]IST[employer], recommended home health on D/C. BP was difficult to control, requiring IV meds up until day of d/c. placed on 3 antihypertensives on d/c. She could not tolerate metformin due to vomiting, changed to insulin. Previously stopped GLP-1 due to pancreatitis, stop this as well. Echocardiogram as part of stroke workup: Left ventricle systolic function is normal. The Ejection Fraction is 60-65%. There is normal LV segmental wall motion. The interatrial septum is intact with no evidence for an atrial septal defect or patent foramen ovale as noted on 2-D or Doppler imaging. Injection of bubbles documented no interatrial shunt. mri: 1. Scattered small acute or subacute infarct within the bilateral cerebral white matter and the right cerebellum. The majority of these lesions appear to be subacute based on signal characteristics. The acute lesions are located within the right frontal lobe and right cerebellum. 2. Acute or subacute intraparenchymal hemorrhage or hemorrhagic transformation of an infarct within the left basal ganglia and adjacent periventricular white matter. 3. Suspected chronic hemorrhage or hemorrhagic infarct within the right caudate nucleus and chronic lacunar infarcts within the left caudate nucleus, left thalamus and right jomar. 4. Scattered areas of signal change within the cerebral white matter, likely due to chronic small vessel disease] SWALLOW STUDY Impressions: Mild oropharyngeal dysphagia w/ delay in initiation of swallow of honey thick liquids and puree (note that pt had delays on prior bedside swallow evaluation 01/06). Pt had 2 instances of wet phonation w/ trials of thin liquids. Honey thick liquids appear to eliminate s/s aspiration. Pt appears at low risk of aspiration w/ modified diet of puree and honey thick liquids. Recommendations: Dysphagia I diet w/ honey thick liquids, no straws, swallow precautions posted in room, f/u for dysphagia. D/w RN; precautions posted in room Vitals Vitals Vital Signs Date Time Temp Pulse Resp B/P (MAP) Pulse Ox O2 Delivery O2 Flow Rate FiO2 01/14/19 11:00 98.9 70 16 117/74 (88) 100 Room Air 98.9 Physical Exam General: Alert, Cooperative, No acute distress, mild distress Heart: Regular rate, No murmurs Lungs: Clear Extremities: No clubbing, No cyanosis, No edema, Normal pulses, No tenderness/ swelling Labs LABS Comparison: 01/04/2019 Findings: There are again some scattered foci of diffusion signal abnormality of the supratentorial parenchyma bilaterally with some variable change, most foci seen previously less intense on diffusion sequence on this exam and previously seen small focus of the right cerebellum not visualized on this exam. However there is new small 0.4 cm focus of somewhat subtle restricted diffusion of the left frontal deep white matter axial image 14 and also a new focus of the right parietal white matter axial image 15 about 0.9 cm. There is again small focus of parenchymal hemorrhage of the left basal ganglia unchanged in size, also some petechial type hemorrhage extending to the left arndt radiata unchanged. There is no new midline shift or new extra-axial fluid collection. There are again old lacunar infarcts scattered in the right frontal parietal white matter, left periventricular white matter, bilateral basal ganglia, and right jomar. There is again scattered [id number] T2 and FLAIR hyperintense signal abnormality of the supratentorial parenchyma, again more confluent signal change about left basal ganglia infarct. Ventricular size is stable, within normal limits. There is right rodolfo bullosa. There is patchy minimal bilateral ethmoid air cell mucosal thickening. There is minimal thickening of the mastoid air cells. There is preservation of the major arterial intracranial flow voids at the skull base. Impression: 1. Compared with the 01/04/2019 exam, there are new small foci of restricted diffusion, evidence of recent acute/early subacute infarcts of the left frontal and right parietal white matter. Other previously seen foci of recent subacute infarcts are less apparent. There is again small focus of parenchymal hemorrhage of the left basal ganglia and petechial type hemorrhage of the left arndt radiata unchanged in appearance. There are again other old lacunar infarcts as stated, also other scattered T2 and FLAIR hyperintense abnormality probably due to chronic microvessel ischemic disease. FOR INTERNAL CODING PURPOSES Critical result: Laboratory Tests Test 01/13/19 16:34 01/13/19 21:27 01/14/19 03:35 01/14/19 07:10 Glucose (Fingerstick) 188 mg/dL (70-99) 152 mg/dL (70-99) 160 mg/dL (70-99) Sodium Level 139 mmol/L (136-145) Potassium Level 3.3 mmol/L (3.5-5.1) Chloride Level 101 mmol/L (98-107) Carbon Dioxide Level 27 mmol/L (21-32) Anion Gap 11 (6-14) Blood Urea Nitrogen 6 mg/dL (7-20) Creatinine 0.8 mg/dL (0.6-1.0) Estimated GFR (Cockcroft-Gault) 88.8 Glucose Level 200 mg/dL (70-99) Calcium Level 8.5 mg/dL (8.5-10.1) Thyroid Stimulating Hormone (TSH) 97.287 uIU/mL (0.358-3.74) Free Thyroxine 0.67 ng/dL (0.76-1.46) Test 01/14/19 11:33 Glucose (Fingerstick) 187 mg/dL (70-99) Assessment and Plan Assessmemt and Plan Problems Medical Problems: (1) TIA (transient ischemic attack) Status: Acute Comment Review of Relevant I have reviewed the following items love (where applicable) has been applied. Labs Laboratory Tests Test 01/12/19 16:40 01/12/19 20:45 01/13/19 06:30 01/13/19 07:09 Glucose (Fingerstick) 199 mg/dL (70-99) 153 mg/dL (70-99) 121 mg/dL (70-99) White Blood Count 5.1 x10^3/uL (4.0-11.0) Red Blood Count 4.81 x10^6/uL (3.50-5.40) Hemoglobin 12.7 g/dL (12.0-15.5) Hematocrit 39.6 % (36.0-47.0) Mean Corpuscular Volume 82 fL (79-100) Mean Corpuscular Hemoglobin 26 pg (25-35) Mean Corpuscular Hemoglobin Concent 32 g/dL (31-37) Red Cell Distribution Width 15.2 % (11.5-14.5) Platelet Count 183 x10^3/uL (140-400) Neutrophils (%) (Auto) 51 % (31-73) Lymphocytes (%) (Auto) 36 % (24-48) Monocytes (%) (Auto) 12 % (0-9) Eosinophils (%) (Auto) 0 % (0-3) Basophils (%) (Auto) 1 % (0-3) Neutrophils # (Auto) 2.6 x10^3uL (1.8-7.7) Lymphocytes # (Auto) 1.8 x10^3/uL (1.0-4.8) Monocytes # (Auto) 0.6 x10^3/uL (0.0-1.1) Eosinophils # (Auto) 0.0 x10^3/uL (0.0-0.7) Basophils # (Auto) 0.0 x10^3/uL (0.0-0.2) Sodium Level 138 mmol/L (136-145) Potassium Level 3.4 mmol/L (3.5-5.1) Chloride Level 102 mmol/L (98-107) Carbon Dioxide Level 24 mmol/L (21-32) Anion Gap 12 (6-14) Blood Urea Nitrogen 9 mg/dL (7-20) Creatinine 0.7 mg/dL (0.6-1.0) Estimated GFR (Cockcroft-Gault) 103.6 Glucose Level 134 mg/dL (70-99) Calcium Level 8.1 mg/dL (8.5-10.1) Magnesium Level 1.9 mg/dL (1.8-2.4) Test 01/13/19 11:05 01/13/19 16:34 01/13/19 21:27 01/14/19 03:35 Glucose (Fingerstick) 153 mg/dL (70-99) 188 mg/dL (70-99) 152 mg/dL (70-99) Sodium Level 139 mmol/L (136-145) Potassium Level 3.3 mmol/L (3.5-5.1) Chloride Level 101 mmol/L (98-107) Carbon Dioxide Level 27 mmol/L (21-32) Anion Gap 11 (6-14) Blood Urea Nitrogen 6 mg/dL (7-20) Creatinine 0.8 mg/dL (0.6-1.0) Estimated GFR (Cockcroft-Gault) 88.8 Glucose Level 200 mg/dL (70-99) Calcium Level 8.5 mg/dL (8.5-10.1) Thyroid Stimulating Hormone (TSH) 97.287 uIU/mL (0.358-3.74) Free Thyroxine 0.67 ng/dL (0.76-1.46) Test 01/14/19 07:10 01/14/19 11:33 Glucose (Fingerstick) 160 mg/dL (70-99) 187 mg/dL (70-99) Laboratory Tests Test 01/13/19 16:34 01/13/19 21:27 01/14/19 03:35 01/14/19 07:10 Glucose (Fingerstick) 188 mg/dL (70-99) 152 mg/dL (70-99) 160 mg/dL (70-99) Sodium Level 139 mmol/L (136-145) Potassium Level 3.3 mmol/L (3.5-5.1) Chloride Level 101 mmol/L (98-107) Carbon Dioxide Level 27 mmol/L (21-32) Anion Gap 11 (6-14) Blood Urea Nitrogen 6 mg/dL (7-20) Creatinine 0.8 mg/dL (0.6-1.0) Estimated GFR (Cockcroft-Gault) 88.8 Glucose Level 200 mg/dL (70-99) Calcium Level 8.5 mg/dL (8.5-10.1) Thyroid Stimulating Hormone (TSH) 97.287 uIU/mL (0.358-3.74) Free Thyroxine 0.67 ng/dL (0.76-1.46) Test 01/14/19 11:33 Glucose (Fingerstick) 187 mg/dL (70-99) Medications Current Medications Sodium Chloride 1,000 ml @ 100 mls/hr Q10H IV Last administered on 01/12/19at 01:11; Start 01/11/19 at 23:45; Stop 01/12/19 at 09:44; Status DC Ondansetron HCl (Zofran) 4 mg PRN Q8HRS PRN IV NAUSEA/VOMITING; Start 01/12/19 at 02:45; Stop 01/13/19 at 02:44; Status DC Sodium Chloride 1,000 ml @ 100 mls/hr Q10H IV Last administered on 01/12/19at 21:34; Start 01/12/19 at 02:45; Stop 01/13/19 at 02:44; Status DC Info (FLU VACCINE SCREEN per RX) 1 each 1X ONCE MC ; Start 01/12/19 at 05:15; Stop 01/12/19 at 05:16; Status UNV Influenza Virus Vaccine (Afluria Trivalent 2752-3420 Syringe) 0.5 ml ONCE ONCE VAX IM Last administered on 01/12/19at 09:09; Start 01/12/19 at 09:00; Stop at 09:01; Status DC Amlodipine Besylate (Norvasc) 10 mg DAILY PO Last administered on 01/14/19 08: 48; Start 01/12/19 at 13:00 Atorvastatin Calcium (Lipitor) 40 mg QHS PO Last administered on 01/13/19 21: 25; Start 01/12/19 at 21:00 Insulin Glargine (Lantus) 8 units QHS SQ Last administered on 01/13/19 21:34; Start 01/12/19 at 21:00 Levothyroxine Sodium (Synthroid) 100 mcg DAILY07 PO Last administered on 06:00; Start 01/12/19 at 13:00 Lisinopril (Prinivil) 10 mg DAILY PO Last administered on 01/14/19 08:48; Start 01/12/19 at 13:00 Quetiapine Fumarate (SEROquel) 100 mg QHS PO Last administered on 01/13/19 21: 25; Start 01/12/19 at 21:00 Hydrochlorothiazide (Microzide) 12.5 mg DAILY PO Last administered on 08:47; Start 01/12/19 at 13:00 Levetiracetam 500 mg/Dextrose 105 ml @ 420 mls/hr Q12HR IV Last administered on 01/14/19 08:48; Start 01/12/19 at 15:30 Aspirin (Ecotrin) 81 mg DAILYWBKFT PO Last administered on 01/14/19 08:48; Start 01/12/19 at 15:30 Potassium Chloride (Klor-Con) 40 meq 1X ONCE PO ; Start 01/13/19 at 08:30; Stop 01/13/19 at 08:33; Status DC Potassium Chloride/Water 100 ml @ 100 mls/hr Q1H IV Last administered on 11:09; Start 01/13/19 at 09:00; Stop 01/13/19 at 10:59; Status DC Active Scripts Active Lisinopril-Hctz 10-12.5 Mg Tab (Lisinopril/Hydrochlorothiazide) 1 Each Tablet 1 Tab PO DAILY 3 Days Aspirin Ec (Aspirin) 81 Mg Tablet.dr 1 Tab PO DAILY Lantus Solostar (Insulin Glargine,Hum.rec.anlog) 100 Unit/1 Ml Insuln.pen 8 Unit SQ QHS Amlodipine Besylate 10 Mg Tablet 10 Mg PO DAILY 30 Days Atorvastatin Calcium 40 Mg Tablet 1 Tab PO DAILY 30 Days Reported Trulicity (Dulaglutide) 1.5 Mg/0.5 Ml Pen.injctr 1.5 Mg SQ WEEKLY Seroquel (Quetiapine Fumarate) 300 Mg Tablet 1 Tab PO QHS Levothyroxine Sodium 100 Mcg Tablet 1 Tab PO DAILY Vitals/I & O Vital Sign - Last 24 Hours 01/13/19 01/13/19 01/13/19 01/13/19 15:00 19:26 20:15 23:30 Temp 98.4 99.2 99.1 98.4 99.2 99.1 Pulse 79 78 81 Resp 18 18 18 B/P (MAP) 139/85 (103) 139/76 (97) 108/82 (91) Pulse Ox 95 99 93 O2 Delivery Room Air Room Air Room Air Room Air 01/14/19 01/14/19 01/14/19 01/14/19 03:01 07:00 08:00 08:48 Temp 97.7 98.8 97.7 98.8 Pulse 78 81 81 Resp 18 16 B/P (MAP) 117/77 (90) 118/86 (97) 118/86 Pulse Ox 98 96 O2 Delivery Room Air Room Air Room Air 01/14/19 01/14/19 08:48 11:00 Temp 98.9 98.9 Pulse 81 70 Resp 16 B/P (MAP) 118/86 117/74 (88) Pulse Ox 100 O2 Delivery Room Air Intake and Output 01/13/19 01/13/19 01/14/19 15:00 23:00 07:00 Intake Total 100 ml 100 ml Balance 100 ml 100 ml NERY PANIAGUA MD Jan 14, 2019 13:31
[2019-01-14 14:34] VITALS: BP 92/57
--- NOTE | 2019-01-14 16:25 | NUR ---
SW following pt. [facility] has accepted pt pending insurance approval. Will continue to follow.
--- NOTE | 2019-01-14 17:22 | PDOC2 ---
NEUROLOGY CONSULT Date of Admission Date of Admission DATE: 01/14/19 TIME: 16:59 Reason for Consult Reason for Consult: IMPRESSION: Subacute multiple left frontal and right parietal WM infarcts. Small IPH at left BG and arndt radiata. Seizure, new. Hx of left SDH. Old lacunar infarct. Metabolic encephalopathy. HTN. HLD. DM. Hypothyroidism. Over weight. RECOMMENDATIONS/PLAN: Continue Keppra 500 mg bid. Continue ASA 81 mg daily. Due to Hx of IPH, no large dose at the present time. Continue Lipitor HS. Lab: see orders. EEG. Treat medical diseases. Treat hypothyroidism per medical team. OT/PT. TSH: 97, T4 0.67 MRI: Refer to radiology reports. Recent Echo: Unremarkable. Recent carotid A US + Doppler: No high grade stenosis. HISTORY OF THE PRESENT ILLNESS: This is a 58-year-old female who recently had infarcts and hemorrhage about 10 days ago and was hospitalized at that time received full evaluation and treatment then discharged home. She came to the ER of [facility] on 01/12/19 with strokelike symptoms. Her daughter indicates that patient was getting up to go to bed when patient's legs gave out, she slumped backward and eyes rolled back in the back of her head. She states that for a short period of time patient was not responsive and then was confused for probably about 5-10 minutes. She denies any shaking. She does state that she noticed that patient had right- sided facial droop which is new from when she was discharged. She states that facial droop is still present. Past Medical History Cardiovascular: HTN Psych: Addictions (alcohol), Bipolar Endocrine: Diabetes, Hypothyroidism Past Surgical History Removal of breast lumps, D&C. Family History CVA, Other (polio) ALLERGY: NKDA MEDICATIONS: Refer to [facility] SOCIAL HISTORY: Lives alone. Denies smoking, drinking, and illicit drug use. REVIEW OF SYSTEMS: Constitutional: No malnutrition, weight loss, cachexia. Head: No traumatic brain or head injury. Skin: No edema, or rash. Ear: No infection. Eyes: No vision loss or color blindness. Nose: No bleeding or purulent discharges. Hearing: No hearing decrease. Neck: No injury. Breast: No history of cancer, masses,or discharges. Cardiac: HTN, HLD. Pulmonary: No COPD. GI: No GI ulcer, GI bleeding. Urinary/genital: UTI. Endocrinologic: Diabetes Mellitus, hypothyroidism. Skeletomuscular: No muscular atrophy. Neurological: see HP. Psychiatric: Denies drug use/abuse. Otherwise, not [id number] review of systems. PHYSICAL EXAMINATION: General appearance is in subacute distress. HEENT: Normocephalic and nontraumatic. Eyes, nose, ears, and throat are unremarkable. Neck is supple. No lymphadenopathy. No bruits are heard over the carotid artery. No crepitus. Cardiovascular: S1, S2, regular rate and rhythm. Pulmonary: Clear to auscultation bilaterally. Abdomen: Bowel sounds are positive. Abdomen is soft, nontender, and nondistended. Extremities: No rash, lesions, or edema. No restriction of range of motion NEUROLOGICAL EXAMINATION: Alert Not fully oriented to time, place and person. PERRL. EOMI. CN: no focal findings. Muscle tone: within normal. Muscle strength: 4 DTR: 2 Plantar reflex: Neutral response bilaterally Gait: not examined in bed. Sensory exam: no abnormal findings. No cerebellar signs elicited. F-T-N test fine. Current Medications Current Medications Current Medications Sodium Chloride 1,000 ml @ 100 mls/hr Q10H IV Last administered on 01/12/19at 01:11; Start 01/11/19 at 23:45; Stop 01/12/19 at 09:44; Status DC Ondansetron HCl (Zofran) 4 mg PRN Q8HRS PRN IV NAUSEA/VOMITING; Start 01/12/19 at 02:45; Stop 01/13/19 at 02:44; Status DC Sodium Chloride 1,000 ml @ 100 mls/hr Q10H IV Last administered on 01/12/19at 21:34; Start 01/12/19 at 02:45; Stop 01/13/19 at 02:44; Status DC Info (FLU VACCINE SCREEN per RX) 1 each 1X ONCE MC ; Start 01/12/19 at 05:15; Stop 01/12/19 at 05:16; Status UNV Influenza Virus Vaccine (Afluria Trivalent [id number] Syringe) 0.5 ml ONCE ONCE VAX IM Last administered on 01/12/19at 09:09; Start 01/12/19 at 09:00; Stop at 09:01; Status DC Amlodipine Besylate (Norvasc) 10 mg DAILY PO Last administered on 01/14/19 08: 48; Start 01/12/19 at 13:00 Atorvastatin Calcium (Lipitor) 40 mg QHS PO Last administered on 01/13/19 21: 25; Start 01/12/19 at 21:00 Insulin Glargine (Lantus) 8 units QHS SQ Last administered on 01/13/19 21:34; Start 01/12/19 at 21:00 Levothyroxine Sodium (Synthroid) 100 mcg DAILY07 PO Last administered on 06:00; Start 01/12/19 at 13:00 Lisinopril (Prinivil) 10 mg DAILY PO Last administered on 01/14/19 08:48; Start 01/12/19 at 13:00 Quetiapine Fumarate (SEROquel) 100 mg QHS PO Last administered on 01/13/19 21: 25; Start 01/12/19 at 21:00 Hydrochlorothiazide (Microzide) 12.5 mg DAILY PO Last administered on 08:47; Start 01/12/19 at 13:00 Levetiracetam 500 mg/Dextrose 105 ml @ 420 mls/hr Q12HR IV Last administered on 01/14/19 08:48; Start 01/12/19 at 15:30 Aspirin (Ecotrin) 81 mg DAILYWBKFT PO Last administered on 01/14/19 08:48; Start 01/12/19 at 15:30 Potassium Chloride (Klor-Con) 40 meq 1X ONCE PO ; Start 01/13/19 at 08:30; Stop 01/13/19 at 08:33; Status DC Potassium Chloride/Water 100 ml @ 100 mls/hr Q1H IV Last administered on 11:09; Start 01/13/19 at 09:00; Stop 01/13/19 at 10:59; Status DC Active Scripts Active Lisinopril-Hctz 10-12.5 Mg Tab (Lisinopril/Hydrochlorothiazide) 1 Each Tablet 1 Tab PO DAILY 3 Days Aspirin Ec (Aspirin) 81 Mg Tablet.dr 1 Tab PO DAILY Lantus Solostar (Insulin Glargine,Hum.rec.anlog) 100 Unit/1 Ml Insuln.pen 8 Unit SQ QHS Amlodipine Besylate 10 Mg Tablet 10 Mg PO DAILY 30 Days Atorvastatin Calcium 40 Mg Tablet 1 Tab PO DAILY 30 Days Reported Trulicity (Dulaglutide) 1.5 Mg/0.5 Ml Pen.injctr 1.5 Mg SQ WEEKLY Seroquel (Quetiapine Fumarate) 300 Mg Tablet 1 Tab PO QHS Levothyroxine Sodium 100 Mcg Tablet 1 Tab PO DAILY Allergies Allergies: Allergies Coded Allergies Type Severity Reaction Last Updated Verified No Known Drug Allergies 12/09/16 No ROS Review of System The patient denies any associated fevers, chills, headache, ear pain, rhinorrhea , sore throat, stiff neck, productive cough, chest pain, shortness of breath, back or flank pain, abdominal pain, nausea, vomiting, diarrhea, constipation, dysuria, rash, numbness, weakness, tingling, incontinence, difficulty ambulating, or diaphoresis. Physical Exam Physical Exam General: Well developed, well nourished, no acute distress, well appearing HEENT: Pupils equally round and reactive to light, EOMI, no discharge, normal conjunctiva Neck: Supple, no nuchal rigidity, no JVD, trachea midline, no tenderness Cardiac: RRR, no murmurs, no gallops, no rubs Chest/Lungs: CTAB, no wheeze, no rhonchi, no crackles Abdomen: soft, non-distended, no guarding, no peritoneal signs, non-tender Back: No tenderness Extremities: no edema, pulses intact, non-tender,capillary refill <3 sec bilateral upper and lower extremities, Neuro: Alert and oriented x 4, no focal deficits, normal speech Vitals Vitals: Vital Signs Date Time Temp Pulse Resp B/P (MAP) Pulse Ox O2 Delivery O2 Flow Rate FiO2 01/14/19 14:34 99.2 87 16 92/57 (69) 98 Room Air 99.2 Labs Labs Laboratory Tests Test 01/12/19 20:45 01/13/19 06:30 01/13/19 07:09 01/13/19 11:05 Glucose (Fingerstick) 153 mg/dL (70-99) 121 mg/dL (70-99) 153 mg/dL (70-99) White Blood Count 5.1 x10^3/uL (4.0-11.0) Red Blood Count 4.81 x10^6/uL (3.50-5.40) Hemoglobin 12.7 g/dL (12.0-15.5) Hematocrit 39.6 % (36.0-47.0) Mean Corpuscular Volume 82 fL (79-100) Mean Corpuscular Hemoglobin 26 pg (25-35) Mean Corpuscular Hemoglobin Concent 32 g/dL (31-37) Red Cell Distribution Width 15.2 % (11.5-14.5) Platelet Count 183 x10^3/uL (140-400) Neutrophils (%) (Auto) 51 % (31-73) Lymphocytes (%) (Auto) 36 % (24-48) Monocytes (%) (Auto) 12 % (0-9) Eosinophils (%) (Auto) 0 % (0-3) Basophils (%) (Auto) 1 % (0-3) Neutrophils # (Auto) 2.6 x10^3uL (1.8-7.7) Lymphocytes # (Auto) 1.8 x10^3/uL (1.0-4.8) Monocytes # (Auto) 0.6 x10^3/uL (0.0-1.1) Eosinophils # (Auto) 0.0 x10^3/uL (0.0-0.7) Basophils # (Auto) 0.0 x10^3/uL (0.0-0.2) Sodium Level 138 mmol/L (136-145) Potassium Level 3.4 mmol/L (3.5-5.1) Chloride Level 102 mmol/L (98-107) Carbon Dioxide Level 24 mmol/L (21-32) Anion Gap 12 (6-14) Blood Urea Nitrogen 9 mg/dL (7-20) Creatinine 0.7 mg/dL (0.6-1.0) Estimated GFR (Cockcroft-Gault) 103.6 Glucose Level 134 mg/dL (70-99) Calcium Level 8.1 mg/dL (8.5-10.1) Magnesium Level 1.9 mg/dL (1.8-2.4) Test 01/13/19 16:34 01/13/19 21:27 01/14/19 03:35 01/14/19 07:10 Glucose (Fingerstick) 188 mg/dL (70-99) 152 mg/dL (70-99) 160 mg/dL (70-99) Sodium Level 139 mmol/L (136-145) Potassium Level 3.3 mmol/L (3.5-5.1) Chloride Level 101 mmol/L (98-107) Carbon Dioxide Level 27 mmol/L (21-32) Anion Gap 11 (6-14) Blood Urea Nitrogen 6 mg/dL (7-20) Creatinine 0.8 mg/dL (0.6-1.0) Estimated GFR (Cockcroft-Gault) 88.8 Glucose Level 200 mg/dL (70-99) Calcium Level 8.5 mg/dL (8.5-10.1) Thyroid Stimulating Hormone (TSH) 97.287 uIU/mL (0.358-3.74) Free Thyroxine 0.67 ng/dL (0.76-1.46) Test 01/14/19 11:33 Glucose (Fingerstick) 187 mg/dL (70-99) Laboratory Tests Test 01/13/19 21:27 01/14/19 03:35 01/14/19 07:10 01/14/19 11:33 Glucose (Fingerstick) 152 mg/dL (70-99) 160 mg/dL (70-99) 187 mg/dL (70-99) Sodium Level 139 mmol/L (136-145) Potassium Level 3.3 mmol/L (3.5-5.1) Chloride Level 101 mmol/L (98-107) Carbon Dioxide Level 27 mmol/L (21-32) Anion Gap 11 (6-14) Blood Urea Nitrogen 6 mg/dL (7-20) Creatinine 0.8 mg/dL (0.6-1.0) Estimated GFR (Cockcroft-Gault) 88.8 Glucose Level 200 mg/dL (70-99) Calcium Level 8.5 mg/dL (8.5-10.1) Thyroid Stimulating Hormone (TSH) 97.287 uIU/mL (0.358-3.74) Free Thyroxine 0.67 ng/dL (0.76-1.46) DEVON SANCHEZ MD Jan 14, 2019 17:22
[2019-01-14] MEDS ORDERED: POTASSIUM CHLORIDE 20 MEQ TABLET.ER. PO ONE (18:30)
[2019-01-14 19:44] VITALS: BP 116/70
[2019-01-14] MEDS: ATORVASTATIN CALCIUM 40 MG TABLET. PO SCH (20:46)
[2019-01-14] MEDS: QUEtiapine 100 MG TABLET. PO SCH (20:46)
[2019-01-14] MEDS: INSULIN GLARGINE 300 UNITS/3 ML INSULN.PEN. SQ SCH (20:57)
[2019-01-14 23:16] VITALS: BP 99/63
[2019-01-15 03:52] VITALS: BP 112/72
[2019-01-15 05:05] LABS: BASO % 1 % (0-3); EOS % 0 % (0-3); HEMATOCRIT 39.2 % (36.0-47.0); HEMOGLOBIN 12.7 g/dL (12.0-15.5); LYMPH # 2.4 x10^3/uL (1.0-4.8); LYMPH % 47 % (24-48); MEAN CORPUSCULAR HEMOGLOBIN 26 pg (25-35); MEAN CORPUSCULAR HGB CONC 32 g/dL (31-37); MEAN CORPUSCULAR VOLUME 81 fL (79-100); MONO # 0.7 x10^3/uL (0.0-1.1); MONO % 13 % (0-9); NEUT % 40 % (31-73); PLATELET COUNT 262 x10^3/uL (140-400); RED BLOOD COUNT 4.86 x10^6/uL (3.50-5.40); RED CELL DISTRIBUTION WIDTH 14.7 % (11.5-14.5); WHITE BLOOD COUNT 5.1 x10^3/uL (4.0-11.0)
[2019-01-15 05:14] LABS: CALCIUM 8.7 mg/dL (8.5-10.1); CREATININE 0.8 mg/dL (0.6-1.0); GFR 88.8; POTASSIUM 3.5 mmol/L (3.5-5.1)
[2019-01-15] MEDS: LEVOTHYROXINE 100 MCG TABLET PO SCH (05:57)
[2019-01-15] MEDS: POTASSIUM CHLORIDE 20 MEQ TABLET.ER. PO SCH (08:00)
[2019-01-15] MEDS: levETIRAcetam 500 MG in IV DEXTROSE 5% 100ML 100 ML IV SCH (08:56)
--- NOTE | 2019-01-15 08:57 | PDOC ---
PROGRESS NOTES Chief Complaint Chief Complaint A/P: Shaking - no hemorrhage on CT head. c/w seizure neurology for this, no seizure like activity has been noted - Kepp per neuro Acute to subacute right cerebellar lobe and bilateral cerebral ischemic CVA, new - cont statin Compared with the 01/04/2019 exam, there are new small foci of restricted diffusion, evidence of recent acute/early subacute infarcts of the left frontal and right parietal white matter. History of left subdural hematoma 2 years ago - stable Some hemorrhagic transformation of ischemic CVA - holding ASA Possible interval development of left basal ganglia stroke - will consult neurology Metabolic encephalopathy - likely related to medication noncompliance, elevated sugars, renal insufficiency probably prerenal dehydration, as well as lack of treatment of her psychiatric disorder and her recent stroke History of bipolar disease - cont seroquel History of alcohol abuse, none in several years - monitor Accel HTN - will restart meds FEN - NPO pending [facility] bedside PPX - SCDs FULL CODE Inpatient for acute encephalopathy in patient with recent CVA, she will need skilled placement on D/C, seems to have failed a home health trial at this point. At least 2 midnights to get her improved History of Present Illness History of Present Illness 58-year-old right-handed female with history of diabetes and bipolar disorder who was found shaking and unresponsive at home by her sister. Had CVA confirmed 01/05, discharged on 01/07 to home health with her sister. Previously seen 2 years ago for a small subdural hematoma not requiring surgery. CT head in ED did not demonstrate new CVA. Last admit with some hemorrhagic conversion of CVA was holding ASA. Subacute multiple left frontal and right parietal WM infarcts. Small IPH at left BG and arndt radiata. Seizure, new. Hx of left SDH. Old lacunar infarct. Metabolic encephalopathy. 01/12: She has no complaints, except hunger. She is verbalizing as much as she did with me last visit. Failed her bedside swallow with nursing. Oriented to person only, not able to get much more history out of her. 01/14 Diet advanced , feels weak. No cough or chest pain. SEIZURE APPEARS NEW , LOW K 3.3 willl replace 01/15 D/W DAUGHTER SHE FEELS SNF IS BETTER OPTION Plan: Cont neuro f/u - keppra [Prior admit: Worked with PT/OT/[facility], SNF VS HOME HEALTH on D/C. BP was difficult to control, requiring IV meds up until day of d/c. placed on 3 antihypertensives on d/c. She could not tolerate metformin due to vomiting, changed to insulin. Previously stopped GLP-1 due to pancreatitis, LIKELY BETTER OUTCOME WITH SNF PLACEMENT Echocardiogram as part of stroke workup: Left ventricle systolic function is normal. The Ejection Fraction is 60-65%. There is normal LV segmental wall motion. The interatrial septum is intact with no evidence for an atrial septal defect or patent foramen ovale as noted on 2-D or Doppler imaging. Injection of bubbles documented no interatrial shunt. mri: 1. Scattered small acute or subacute infarct within the bilateral cerebral white matter and the right cerebellum. The majority of these lesions appear to be subacute based on signal characteristics. The acute lesions are located within the right frontal lobe and right cerebellum. 2. Acute or subacute intraparenchymal hemorrhage or hemorrhagic transformation of an infarct within the left basal ganglia and adjacent periventricular white matter. 3. Suspected chronic hemorrhage or hemorrhagic infarct within the right caudate nucleus and chronic lacunar infarcts within the left caudate nucleus, left thalamus and right jomar. 4. Scattered areas of signal change within the cerebral white matter, likely due to chronic small vessel disease] SWALLOW STUDY Impressions: Mild oropharyngeal dysphagia w/ delay in initiation of swallow of honey thick liquids and puree (note that pt had delays on prior bedside swallow evaluation 01/06). Pt had 2 instances of wet phonation w/ trials of thin liquids. Honey thick liquids appear to eliminate s/s aspiration. Pt appears at low risk of aspiration w/ modified diet of puree and honey thick liquids. Recommendations: Dysphagia I diet w/ honey thick liquids, no straws, swallow precautions posted in room, f/u for dysphagia. D/w RN; precautions posted in room Discharge Recommendations * Care Home Unit * Home with 24hr care Treatment Frequency (Days/Week) * 5x/wk over 7 days Additional Details/Impressions * Results as outlined above. Pt w/ overt s/s aspiration, immediate and delayed cough, w/ thin liquids. No s/s aspiration noted w/ honey thick liquids and puree. Oropharyngeal delay continues of 1-3 seconds at times more so w/ honey thick liquids and puree than thin liquids. Mastication inefficiency decreases safety of modified solids w/ pt's current edentulous status. Anticipate pt would be able to advance diet when dentures are available. Hyolaryngeal excursion appears minimally decreased in anterior movement via palp. Impressions: Mild oropharynegal dyspahgia w/ delay in initation of swallow of honey thick liquids and puree (note that pt had delays on prior bedside swallow evaluation 01/06). Pt w/ overt s/s apsiration w/ trials of thin liquids. Honey thick liquids appear to eliminate s/s aspiation. Pt appears at low risk of aspiration w/ modified diet of puree and honey thick liquids. Recommendations: Dysphagia I diet w/ honey thick liquids, no straws, swallow precautions posted in room, ST f/u for dysphagia. Vitals Vitals Vital Signs Date Time Temp Pulse Resp B/P (MAP) Pulse Ox O2 Delivery O2 Flow Rate FiO2 01/15/19 07:26 Room Air 01/15/19 03:52 97.3 75 18 112/72 (85) 95 97.3 Physical Exam General: Alert, Oriented X3, Cooperative, No acute distress, mild distress Heart: Regular rate, Normal S1, No murmurs Lungs: Clear Abdomen: Normal bowel sounds, Soft, No tenderness Extremities: No clubbing, No cyanosis, No edema, Normal pulses, No tenderness/ swelling Labs LABS Laboratory Tests Test 01/14/19 11:33 01/14/19 17:06 01/14/19 20:19 01/15/19 03:45 Glucose (Fingerstick) 187 mg/dL (70-99) 284 mg/dL (70-99) 204 mg/dL (70-99) White Blood Count 5.1 x10^3/uL (4.0-11.0) Red Blood Count 4.86 x10^6/uL (3.50-5.40) Hemoglobin 12.7 g/dL (12.0-15.5) Hematocrit 39.2 % (36.0-47.0) Mean Corpuscular Volume 81 fL (79-100) Mean Corpuscular Hemoglobin 26 pg (25-35) Mean Corpuscular Hemoglobin Concent 32 g/dL (31-37) Red Cell Distribution Width 14.7 % (11.5-14.5) Platelet Count 262 x10^3/uL (140-400) Neutrophils (%) (Auto) 40 % (31-73) Lymphocytes (%) (Auto) 47 % (24-48) Monocytes (%) (Auto) 13 % (0-9) Eosinophils (%) (Auto) 0 % (0-3) Basophils (%) (Auto) 1 % (0-3) Neutrophils # (Auto) 2.0 x10^3uL (1.8-7.7) Lymphocytes # (Auto) 2.4 x10^3/uL (1.0-4.8) Monocytes # (Auto) 0.7 x10^3/uL (0.0-1.1) Eosinophils # (Auto) 0.0 x10^3/uL (0.0-0.7) Basophils # (Auto) 0.0 x10^3/uL (0.0-0.2) Sodium Level 139 mmol/L (136-145) Potassium Level 3.5 mmol/L (3.5-5.1) Chloride Level 102 mmol/L (98-107) Carbon Dioxide Level 30 mmol/L (21-32) Anion Gap 7 (6-14) Blood Urea Nitrogen 9 mg/dL (7-20) Creatinine 0.8 mg/dL (0.6-1.0) Estimated GFR (Cockcroft-Gault) 88.8 Glucose Level 182 mg/dL (70-99) Calcium Level 8.7 mg/dL (8.5-10.1) Assessment and Plan Assessmemt and Plan Problems Medical Problems: (1) TIA (transient ischemic attack) Status: Acute Goal 3 - Ambulation Device * Roller Walker Goal 3 Assessment * Appropriate - Continue Goal 4 - Stairs Assistance Required * Stand-by Assistance Goal 4 - Number of Stairs * 2-4 Goal 4 - Device on Stairs * Rail on Right * Rail on Left Goal 4 Assessment * Appropriate - Continue Treatment Plan * Therapeutic Exercise * Bed Mobility Training * Transfer training * Gait Training Frequency of Treatment Expected * 7 visits/week Discharge Recommendations * Care Home Unit * Home with 24hr care Comment Review of Relevant I have reviewed the following items love (where applicable) has been applied. Labs Laboratory Tests Test 01/13/19 11:05 01/13/19 16:34 01/13/19 21:27 01/14/19 03:35 Glucose (Fingerstick) 153 mg/dL (70-99) 188 mg/dL (70-99) 152 mg/dL (70-99) Sodium Level 139 mmol/L (136-145) Potassium Level 3.3 mmol/L (3.5-5.1) Chloride Level 101 mmol/L (98-107) Carbon Dioxide Level 27 mmol/L (21-32) Anion Gap 11 (6-14) Blood Urea Nitrogen 6 mg/dL (7-20) Creatinine 0.8 mg/dL (0.6-1.0) Estimated GFR (Cockcroft-Gault) 88.8 Glucose Level 200 mg/dL (70-99) Calcium Level 8.5 mg/dL (8.5-10.1) Thyroid Stimulating Hormone (TSH) 97.287 uIU/mL (0.358-3.74) Free Thyroxine 0.67 ng/dL (0.76-1.46) Test 01/14/19 07:10 01/14/19 11:33 01/14/19 17:06 01/14/19 20:19 Glucose (Fingerstick) 160 mg/dL (70-99) 187 mg/dL (70-99) 284 mg/dL (70-99) 204 mg/dL (70-99) Test 01/15/19 03:45 White Blood Count 5.1 x10^3/uL (4.0-11.0) Red Blood Count 4.86 x10^6/uL (3.50-5.40) Hemoglobin 12.7 g/dL (12.0-15.5) Hematocrit 39.2 % (36.0-47.0) Mean Corpuscular Volume 81 fL (79-100) Mean Corpuscular Hemoglobin 26 pg (25-35) Mean Corpuscular Hemoglobin Concent 32 g/dL (31-37) Red Cell Distribution Width 14.7 % (11.5-14.5) Platelet Count 262 x10^3/uL (140-400) Neutrophils (%) (Auto) 40 % (31-73) Lymphocytes (%) (Auto) 47 % (24-48) Monocytes (%) (Auto) 13 % (0-9) Eosinophils (%) (Auto) 0 % (0-3) Basophils (%) (Auto) 1 % (0-3) Neutrophils # (Auto) 2.0 x10^3uL (1.8-7.7) Lymphocytes # (Auto) 2.4 x10^3/uL (1.0-4.8) Monocytes # (Auto) 0.7 x10^3/uL (0.0-1.1) Eosinophils # (Auto) 0.0 x10^3/uL (0.0-0.7) Basophils # (Auto) 0.0 x10^3/uL (0.0-0.2) Sodium Level 139 mmol/L (136-145) Potassium Level 3.5 mmol/L (3.5-5.1) Chloride Level 102 mmol/L (98-107) Carbon Dioxide Level 30 mmol/L (21-32) Anion Gap 7 (6-14) Blood Urea Nitrogen 9 mg/dL (7-20) Creatinine 0.8 mg/dL (0.6-1.0) Estimated GFR (Cockcroft-Gault) 88.8 Glucose Level 182 mg/dL (70-99) Calcium Level 8.7 mg/dL (8.5-10.1) Laboratory Tests Test 01/14/19 11:33 01/14/19 17:06 01/14/19 20:19 01/15/19 03:45 Glucose (Fingerstick) 187 mg/dL (70-99) 284 mg/dL (70-99) 204 mg/dL (70-99) White Blood Count 5.1 x10^3/uL (4.0-11.0) Red Blood Count 4.86 x10^6/uL (3.50-5.40) Hemoglobin 12.7 g/dL (12.0-15.5) Hematocrit 39.2 % (36.0-47.0) Mean Corpuscular Volume 81 fL (79-100) Mean Corpuscular Hemoglobin 26 pg (25-35) Mean Corpuscular Hemoglobin Concent 32 g/dL (31-37) Red Cell Distribution Width 14.7 % (11.5-14.5) Platelet Count 262 x10^3/uL (140-400) Neutrophils (%) (Auto) 40 % (31-73) Lymphocytes (%) (Auto) 47 % (24-48) Monocytes (%) (Auto) 13 % (0-9) Eosinophils (%) (Auto) 0 % (0-3) Basophils (%) (Auto) 1 % (0-3) Neutrophils # (Auto) 2.0 x10^3uL (1.8-7.7) Lymphocytes # (Auto) 2.4 x10^3/uL (1.0-4.8) Monocytes # (Auto) 0.7 x10^3/uL (0.0-1.1) Eosinophils # (Auto) 0.0 x10^3/uL (0.0-0.7) Basophils # (Auto) 0.0 x10^3/uL (0.0-0.2) Sodium Level 139 mmol/L (136-145) Potassium Level 3.5 mmol/L (3.5-5.1) Chloride Level 102 mmol/L (98-107) Carbon Dioxide Level 30 mmol/L (21-32) Anion Gap 7 (6-14) Blood Urea Nitrogen 9 mg/dL (7-20) Creatinine 0.8 mg/dL (0.6-1.0) Estimated GFR (Cockcroft-Gault) 88.8 Glucose Level 182 mg/dL (70-99) Calcium Level 8.7 mg/dL (8.5-10.1) Medications Current Medications Sodium Chloride 1,000 ml @ 100 mls/hr Q10H IV Last administered on 01/12/19at 01:11; Start 01/11/19 at 23:45; Stop 01/12/19 at 09:44; Status DC Ondansetron HCl (Zofran) 4 mg PRN Q8HRS PRN IV NAUSEA/VOMITING; Start 01/12/19 at 02:45; Stop 01/13/19 at 02:44; Status DC Sodium Chloride 1,000 ml @ 100 mls/hr Q10H IV Last administered on 01/12/19at 21:34; Start 01/12/19 at 02:45; Stop 01/13/19 at 02:44; Status DC Info (FLU VACCINE SCREEN per RX) 1 each 1X ONCE MC ; Start 01/12/19 at 05:15; Stop 01/12/19 at 05:16; Status UNV Influenza Virus Vaccine (Afluria Trivalent [id number] Syringe) 0.5 ml ONCE ONCE VAX IM Last administered on 01/12/19at 09:09; Start 01/12/19 at 09:00; Stop at 09:01; Status DC Amlodipine Besylate (Norvasc) 10 mg DAILY PO Last administered on 01/14/19 08: 48; Start 01/12/19 at 13:00 Atorvastatin Calcium (Lipitor) 40 mg QHS PO Last administered on 01/14/19 20: 46; Start 01/12/19 at 21:00 Insulin Glargine (Lantus) 8 units QHS SQ Last administered on 01/14/19 20:57; Start 01/12/19 at 21:00 Levothyroxine Sodium (Synthroid) 100 mcg DAILY07 PO Last administered on 05:57; Start 01/12/19 at 13:00 Lisinopril (Prinivil) 10 mg DAILY PO Last administered on 01/14/19 08:48; Start 01/12/19 at 13:00 Quetiapine Fumarate (SEROquel) 100 mg QHS PO Last administered on 01/14/19 20: 46; Start 01/12/19 at 21:00 Hydrochlorothiazide (Microzide) 12.5 mg DAILY PO Last administered on 08:47; Start 01/12/19 at 13:00 Levetiracetam 500 mg/Dextrose 105 ml @ 420 mls/hr Q12HR IV Last administered on 01/14/19 20:46; Start 01/12/19 at 15:30 Aspirin (Ecotrin) 81 mg DAILYWBKFT PO Last administered on 01/14/19 08:48; Start 01/12/19 at 15:30 Potassium Chloride (Klor-Con) 40 meq 1X ONCE PO ; Start 01/13/19 at 08:30; Stop 01/13/19 at 08:33; Status DC Potassium Chloride/Water 100 ml @ 100 mls/hr Q1H IV Last administered on 11:09; Start 01/13/19 at 09:00; Stop 01/13/19 at 10:59; Status DC Potassium Chloride (Klor-Con) 20 meq 1X ONCE PO Last administered on 20:46; Start 01/14/19 at 18:30; Stop 01/14/19 at 18:31; Status DC Potassium Chloride (Klor-Con) 20 meq DAILYWBKFT PO ; Start 01/15/19 at 08:00 Active Scripts Active Lisinopril-Hctz 10-12.5 Mg Tab (Lisinopril/Hydrochlorothiazide) 1 Each Tablet 1 Tab PO DAILY 3 Days Aspirin Ec (Aspirin) 81 Mg Tablet.dr 1 Tab PO DAILY Lantus Solostar (Insulin Glargine,Hum.rec.anlog) 100 Unit/1 Ml Insuln.pen 8 Unit SQ QHS Amlodipine Besylate 10 Mg Tablet 10 Mg PO DAILY 30 Days Atorvastatin Calcium 40 Mg Tablet 1 Tab PO DAILY 30 Days Reported Trulicity (Dulaglutide) 1.5 Mg/0.5 Ml Pen.injctr 1.5 Mg SQ WEEKLY Seroquel (Quetiapine Fumarate) 300 Mg Tablet 1 Tab PO QHS Levothyroxine Sodium 100 Mcg Tablet 1 Tab PO DAILY Vitals/I & O Vital Sign - Last 24 Hours 01/14/19 01/14/19 01/14/19 01/14/19 11:00 14:34 19:44 20:00 Temp 98.9 99.2 99.3 98.9 99.2 99.3 Pulse 70 87 80 Resp 16 16 19 B/P (MAP) 117/74 (88) 92/57 (69) 116/70 (85) Pulse Ox 100 98 94 O2 Delivery Room Air Room Air Room Air Room Air 01/14/19 01/15/19 01/15/19 23:16 03:52 07:26 Temp 98.5 97.3 98.5 97.3 Pulse 75 75 Resp 20 18 B/P (MAP) 99/63 (75) 112/72 (85) Pulse Ox 97 95 O2 Delivery Room Air Room Air Room Air Intake and Output 01/14/19 01/14/19 01/15/19 15:00 23:00 07:00 Intake Total 570 ml Balance 570 ml NERY PANIAGUA MD Jan 15, 2019 08:57
[2019-01-15] MEDS: hydroCHLOROthiazide 12.5 MG CAPSULE PO SCH (08:59)
[2019-01-15] MEDS: amLODIPine BESYLATE 10 MG TABLET PO SCH (09:00)
[2019-01-15] MEDS: ASPIRIN ENTERIC COATED 81 MG TABLET.DR. PO SCH (09:00)
[2019-01-15] MEDS: LISINOPRIL 10 MG TABLET PO SCH (09:01)
[2019-01-15 11:00] VITALS: BP 119/71
--- NOTE | 2019-01-15 11:36 | NUR ---
ROSS following pt. Spoke with Josephine at and pt has been ambulating 500ft with a walker yesterday. It is likely that insurance will deny SNF at this time and HH is a better option. ROSS phoned pt's sisterCyndie and left a voice mail regarding dc plan requesting a call back. Will continue to follow. Addendum: 01/15/19 at 1308 by VAN HAWKINS SW following pt. ROSS received a phone call from pt's sister and discussed plan. Sister agreeable with resuming HH with [facility]. ROSS provided sister with home care agency names and contact info with for [facility]. ROSS also informed sister, pt might be ready to dc today. VANESA RN and Physician.
--- NOTE | 2019-01-15 13:46 | EEG ---
DATE OF SERVICE: 01/15/2019 EEG NUMBER: [id number]. OBJECTIVE: This is a 58-year-old female patient with history of stroke and seizure. EEG was requested to evaluate seizure activity. METHODS: Twenty electrodes were applied according to the international 10-20 electrode placement system. EKG monitoring, hyperventilation, intermittent photic stimulation, monopolar and bipolar montages are routinely utilized. The record was obtained on a digital system with video monitoring. MEDICATION: Keppra. FINDINGS: 1. Background: The patient was recorded in the awake, drowsy and sleep states. The overall background amplitude is 10-20 microvolts. A posterior dominant rhythm of 6-7 Hz is observed. 2. Abnormalities: No specific epileptiform discharge or electrographic seizure is seen. No focal or diffuse slowing. 3. Activation: Hyperventilation was not performed because patient was unable to follow the commands. Intermittent photic stimulation was performed with photic driving. No specific epileptiform discharge or electrographic seizure induced by intermittent photic stimulation. IMPRESSION: This EEG falls into the abnormal category of the study for the awake, drowsy, and sleep states. The posterior dominant rhythm of 6-7 Hz is slow for age. No focal, lateralizing, specific epileptiform discharge or electrographic seizure is seen. DEVON SANCHEZ MD DR: CHLOE/karmen JOB#: [id number] / [id number] MELODY
[2019-01-15 15:00] VITALS: BP 104/61
--- NOTE | 2019-01-15 16:39 | NUR ---
ROSS following pt. ROSS requested Elizabeth to Submit for auth as family still interested in SNU. ROSS extensively discussed with pt's sister, Cyndie regarding pt as she is concerned regarding pt. She reports pt is not able to care for self and family is concerned as they are not able to provide 24/7 care. SW discussed pt might be able to get home care through her medicaid. ROSS connected sister with Ann at [facility] and was notified there is a wait list for services and they prioritize elderly people first. ROSS informed sister to call [facility] directly to request about services. SW discussed SNU, LTC and insurance coverage. SW discussed about emergency placement or Assisted living placement. Sister is worried pt will go home and come back to hospital again. SW provided sister with resources for a place for mom and private home care agencies. Sister reported she will discuss all options with family and notify ROSS in the morning as to what they want to do. Will continue to follow.
--- NOTE | 2019-01-15 17:29 | PDOC ---
PROGRESS NOTES Assessment Assessment Subacute multiple left frontal and right parietal WM infarcts. Small IPH at left BG and arndt radiata. Seizure, new. Hx of left SDH. Old lacunar infarct. Metabolic encephalopathy. HTN. HLD. DM. Hypothyroidism. Over weight. RECOMMENDATIONS/PLAN: Continue Keppra 500 mg bid. Continue ASA 81 mg daily. Due to Hx of IPH, no large dose at the present time. Continue Lipitor HS. Treat medical diseases. Treat hypothyroidism per medical team. OT/PT. TSH: 97, T4 0.67 MRI: Refer to radiology reports. Recent Echo: Unremarkable. Recent carotid A US + Doppler: No high grade stenosis. HISTORY OF THE PRESENT ILLNESS: This is a 58-year-old female who recently had infarcts and hemorrhage about 10 days ago and was hospitalized at that time received full evaluation and treatment then discharged home. She came to the ER of [facility] on 01/12/19 with strokelike symptoms. Her daughter indicates that patient was getting up to go to bed when patient's legs gave out, she slumped backward and eyes rolled back in the back of her head. She states that for a short period of time patient was not responsive and then was confused for probably about 5-10 minutes. She denies any shaking. She does state that she noticed that patient had right- sided facial droop which is new from when she was discharged. She states that facial droop is still present. Past Medical History Cardiovascular: HTN Psych: Addictions (alcohol), Bipolar Endocrine: Diabetes, Hypothyroidism Past Surgical History Removal of breast lumps, D&C. Family History CVA, Other (polio) ALLERGY: NKDA MEDICATIONS: Refer to [facility] SOCIAL HISTORY: Lives alone. Denies smoking, drinking, and illicit drug use. REVIEW OF SYSTEMS: Constitutional: No malnutrition, weight loss, cachexia. Head: No traumatic brain or head injury. Skin: No edema, or rash. Ear: No infection. Eyes: No vision loss or color blindness. Nose: No bleeding or purulent discharges. Hearing: No hearing decrease. Neck: No injury. Breast: No history of cancer, masses,or discharges. Cardiac: HTN, HLD. Pulmonary: No COPD. GI: No GI ulcer, GI bleeding. Urinary/genital: UTI. Endocrinologic: Diabetes Mellitus, hypothyroidism. Skeletomuscular: No muscular atrophy. Neurological: see HP. Psychiatric: Denies drug use/abuse. Otherwise, not [id number] review of systems. PHYSICAL EXAMINATION: General appearance is in subacute distress. HEENT: Normocephalic and nontraumatic. Eyes, nose, ears, and throat are unremarkable. Neck is supple. No lymphadenopathy. No bruits are heard over the carotid artery. No crepitus. Cardiovascular: S1, S2, regular rate and rhythm. Pulmonary: Clear to auscultation bilaterally. Abdomen: Bowel sounds are positive. Abdomen is soft, nontender, and nondistended. Extremities: No rash, lesions, or edema. No restriction of range of motion NEUROLOGICAL EXAMINATION: Alert Not fully oriented to time, place and person. PERRL. EOMI. CN: no focal findings. Muscle tone: within normal. Muscle strength: 4 DTR: 2 Plantar reflex: Neutral response bilaterally Gait: Able to walk with a walker. Sensory exam: no abnormal findings. No cerebellar signs elicited. F-T-N test fine. Objective Objective Vital Signs Date Time Temp Pulse Resp B/P (MAP) Pulse Ox O2 Delivery O2 Flow Rate FiO2 01/15/19 15:00 98.9 81 18 104/61 (75) 98 Room Air 98.9 Intake and Output 01/15/19 07:00 Intake Total 570 ml Balance 570 ml Intake Oral 570 ml # Voids 7 Vitals Signs Vitals VS - Last 72 Hours, by Label Date Time Temp Pulse Resp B/P (MAP) Pulse Ox O2 Delivery O2 Flow Rate FiO2 01/15/19 15:00 98.9 81 18 104/61 (75) 98 Room Air 98.9 01/15/19 11:00 98.2 75 18 119/71 (87) 97 Room Air 98.2 01/15/19 09:01 75 112/72 01/15/19 09:00 75 112/72 01/15/19 07:26 Room Air 01/15/19 03:52 97.3 75 18 112/72 (85) 95 Room Air 97.3 01/14/19 23:16 98.5 75 20 99/63 (75) 97 Room Air 98.5 01/14/19 20:00 Room Air 01/14/19 19:44 99.3 80 19 116/70 (85) 94 Room Air 99.3 01/14/19 14:34 99.2 87 16 92/57 (69) 98 Room Air 99.2 2/25/19 11:00 98.9 70 16 117/74 (88) 100 Room Air 98.9 01/14/19 08:48 81 118/86 01/14/19 08:48 81 118/86 01/14/19 08:00 Room Air 01/14/19 07:00 98.8 81 16 118/86 (97) 96 Room Air 98.8 Laboratory Laboratory Laboratory Tests Test 01/14/19 20:19 01/15/19 03:45 01/15/19 11:57 01/15/19 17:14 Glucose (Fingerstick) 204 mg/dL (70-99) 243 mg/dL (70-99) 179 mg/dL (70-99) White Blood Count 5.1 x10^3/uL (4.0-11.0) Red Blood Count 4.86 x10^6/uL (3.50-5.40) Hemoglobin 12.7 g/dL (12.0-15.5) Hematocrit 39.2 % (36.0-47.0) Mean Corpuscular Volume 81 fL (79-100) Mean Corpuscular Hemoglobin 26 pg (25-35) Mean Corpuscular Hemoglobin Concent 32 g/dL (31-37) Red Cell Distribution Width 14.7 % (11.5-14.5) Platelet Count 262 x10^3/uL (140-400) Neutrophils (%) (Auto) 40 % (31-73) Lymphocytes (%) (Auto) 47 % (24-48) Monocytes (%) (Auto) 13 % (0-9) Eosinophils (%) (Auto) 0 % (0-3) Basophils (%) (Auto) 1 % (0-3) Neutrophils # (Auto) 2.0 x10^3uL (1.8-7.7) Lymphocytes # (Auto) 2.4 x10^3/uL (1.0-4.8) Monocytes # (Auto) 0.7 x10^3/uL (0.0-1.1) Eosinophils # (Auto) 0.0 x10^3/uL (0.0-0.7) Basophils # (Auto) 0.0 x10^3/uL (0.0-0.2) Sodium Level 139 mmol/L (136-145) Potassium Level 3.5 mmol/L (3.5-5.1) Chloride Level 102 mmol/L (98-107) Carbon Dioxide Level 30 mmol/L (21-32) Anion Gap 7 (6-14) Blood Urea Nitrogen 9 mg/dL (7-20) Creatinine 0.8 mg/dL (0.6-1.0) Estimated GFR (Cockcroft-Gault) 88.8 Glucose Level 182 mg/dL (70-99) Calcium Level 8.7 mg/dL (8.5-10.1) Medication Medications Current Medications Levetiracetam (Keppra) 500 mg BID PO ; Start 01/15/19 at 21:00 Potassium Chloride (Klor-Con) 20 meq 1X ONCE PO Last administered on at 20:46; Start 01/14/19 at 18:30; Stop 01/14/19 at 18:31; Status DC Potassium Chloride (Klor-Con) 20 meq DAILYWBKFT PO Last administered on at 08:00; Start 01/15/19 at 08:00 Comment Review of Relevant I have reviewed the following items love (where applicable) has been applied. DEOVN SANCHEZ MD Jan 15, 2019 17:29
[2019-01-15 19:15] VITALS: BP 112/76
[2019-01-15] MEDS: levETIRAcetam 500 MG TABLET PO SCH (21:27)
[2019-01-15] MEDS: ATORVASTATIN CALCIUM 40 MG TABLET. PO SCH (21:27)
[2019-01-15] MEDS: QUEtiapine 100 MG TABLET. PO SCH (21:27)
[2019-01-15] MEDS: INSULIN GLARGINE 300 UNITS/3 ML INSULN.PEN. SQ SCH (21:31)
[2019-01-15 23:48] VITALS: BP 90/50
[2019-01-16 03:29] VITALS: BP 96/59
[2019-01-16] MEDS: LEVOTHYROXINE 100 MCG TABLET PO SCH (06:13)
[2019-01-16 07:00] VITALS: BP 123/79
[2019-01-16 09:05] VITALS: BP 123/79
[2019-01-16] MEDS: hydroCHLOROthiazide 12.5 MG CAPSULE PO SCH (09:05)
[2019-01-16] MEDS: POTASSIUM CHLORIDE 20 MEQ TABLET.ER. PO SCH (09:05)
[2019-01-16] MEDS: LISINOPRIL 10 MG TABLET PO SCH (09:05)
[2019-01-16] MEDS: levETIRAcetam 500 MG TABLET PO SCH (09:05)
[2019-01-16] MEDS: amLODIPine BESYLATE 10 MG TABLET PO SCH (09:05)
[2019-01-16] MEDS: ASPIRIN ENTERIC COATED 81 MG TABLET.DR. PO SCH (09:05)
--- NOTE | 2019-01-16 09:15 | PDOC ---
PROGRESS NOTES Chief Complaint Chief Complaint DISCHARGE DX NEW ONSET SEIZURE - no hemorrhage on CT head. c/w seizure neurology for this, no seizure like activity has been noted - Kepp per neuro Acute to subacute right cerebellar lobe and bilateral cerebral ischemic CVA, new - cont statin Compared with the 01/04/2019 exam, there are new small foci of restricted diffusion, evidence of recent acute/early subacute infarcts of the left frontal and right parietal white matter. History of left subdural hematoma 2 years ago - stable Some hemorrhagic transformation of ischemic CVA - holding ASA Possible interval development of left basal ganglia stroke - will consult neurology Metabolic encephalopathy - likely related to medication noncompliance, elevated sugars, renal insufficiency probably prerenal dehydration, as well as lack of treatment of her psychiatric disorder and her recent stroke History of bipolar disease - cont seroquel History of alcohol abuse, none in several years - monitor Accel HTN - will restart meds FEN - NPO pending PH[employer] M[employer] INSPECTOR bedside PPX - SCDs FULL CODE Inpatient for acute encephalopathy in patient with recent CVA, she will need skilled placement on D/C, seems to have failed a home health trial at this point. History of Present Illness History of Present Illness 58-year-old right-handed female with history of diabetes and bipolar disorder who was found shaking and unresponsive at home by her sister. Had CVA confirmed 01/05, discharged on 01/07 to home health with her sister. Previously seen 2 years ago for a small subdural hematoma not requiring surgery. CT head in ED did not demonstrate new CVA. Last admit with some hemorrhagic conversion of CVA was holding ASA. Subacute multiple left frontal and right parietal WM infarcts. Small IPH at left BG and arndt radiata. Seizure, new. Hx of left SDH. Old lacunar infarct. Metabolic encephalopathy. 01/12: She has no complaints, except hunger. She is verbalizing as much as she did with me last visit. Failed her bedside swallow with nursing. Oriented to person only, not able to get much more history out of her. 01/14 Diet advanced , feels weak. No cough or chest pain. SEIZURE APPEARS NEW , LOW K 3.3 willl replace 01/15 D/W DAUGHTER SHE FEELS SNF IS BETTER OPTION 01/16 FEELS UNSTEADY WITH GAIT TO SNF TODAY PP Plan: Cont neuro f/u - keppra [Prior admit: Worked with PT/OT/PHOTO MASK INSPECTOR, SNF VS HOME HEALTH on D/C. BP was difficult to control, requiring IV meds up until day of d/c. placed on 3 antihypertensives on d/c. She could not tolerate metformin due to vomiting, changed to insulin. Previously stopped GLP-1 due to pancreatitis, LIKELY BETTER OUTCOME WITH SNF PLACEMENT Echocardiogram as part of stroke workup: Left ventricle systolic function is normal. The Ejection Fraction is 60-65%. There is normal LV segmental wall motion. The interatrial septum is intact with no evidence for an atrial septal defect or patent foramen ovale as noted on 2-D or Doppler imaging. Injection of bubbles documented no interatrial shunt. mri: 1. Scattered small acute or subacute infarct within the bilateral cerebral white matter and the right cerebellum. The majority of these lesions appear to be subacute based on signal characteristics. The acute lesions are located within the right frontal lobe and right cerebellum. 2. Acute or subacute intraparenchymal hemorrhage or hemorrhagic transformation of an infarct within the left basal ganglia and adjacent periventricular white matter. 3. Suspected chronic hemorrhage or hemorrhagic infarct within the right caudate nucleus and chronic lacunar infarcts within the left caudate nucleus, left thalamus and right jomar. 4. Scattered areas of signal change within the cerebral white matter, likely due to chronic small vessel disease] SWALLOW STUDY Impressions: Mild oropharyngeal dysphagia w/ delay in initiation of swallow of honey thick liquids and puree (note that pt had delays on prior bedside swallow evaluation 01/06). Pt had 2 instances of wet phonation w/ trials of thin liquids. Honey thick liquids appear to eliminate s/s aspiration. Pt appears at low risk of aspiration w/ modified diet of puree and honey thick liquids. Recommendations: Dysphagia I diet w/ honey thick liquids, no straws, swallow precautions posted in room, f/u for dysphagia. D/w RN; precautions posted in room Discharge Recommendations * Detention Unit * Home with 24hr care Treatment Frequency (Days/Week) * 5x/wk over 7 days Additional Details/Impressions * Results as outlined above. Pt w/ overt s/s aspiration, immediate and delayed cough, w/ thin liquids. No s/s aspiration noted w/ honey thick liquids and puree. Oropharyngeal delay continues of 1-3 seconds at times more so w/ honey thick liquids and puree than thin liquids. Mastication inefficiency decreases safety of modified solids w/ pt's current edentulous status. Anticipate pt would be able to advance diet when dentures are available. Hyolaryngeal excursion appears minimally decreased in anterior movement via palp. Impressions: Mild oropharynegal dyspahgia w/ delay in initation of swallow of honey thick liquids and puree (note that pt had delays on prior bedside swallow evaluation 01/06). Pt w/ overt s/s apsiration w/ trials of thin liquids. Honey thick liquids appear to eliminate s/s aspiation. Pt appears at low risk of aspiration w/ modified diet of puree and honey thick liquids. Recommendations: Dysphagia I diet w/ honey thick liquids, no straws, swallow precautions posted in room, ST f/u for dysphagia. Vitals Vitals Vital Signs Date Time Temp Pulse Resp B/P (MAP) Pulse Ox O2 Delivery O2 Flow Rate FiO2 01/16/19 09:05 73 123/79 01/16/19 07:00 98.6 18 96 Room Air 98.6 Physical Exam General: Alert, Oriented X3, Cooperative, No acute distress, mild distress Heart: Regular rate, Normal S1, No murmurs Lungs: Clear Abdomen: Normal bowel sounds, Soft, No tenderness Extremities: No clubbing, No cyanosis, No edema, Normal pulses, No tenderness/ swelling Labs LABS Laboratory Tests Test 01/15/19 11:57 01/15/19 17:14 01/15/19 20:07 01/16/19 07:23 Glucose (Fingerstick) 243 mg/dL (70-99) 179 mg/dL (70-99) 204 mg/dL (70-99) 172 mg/dL (70-99) Assessment and Plan Assessmemt and Plan Problems Medical Problems: (1) TIA (transient ischemic attack) Status: Acute Comment Review of Relevant I have reviewed the following items love (where applicable) has been applied. Labs Laboratory Tests Test 01/14/19 11:33 01/14/19 17:06 01/14/19 20:19 01/15/19 03:45 Glucose (Fingerstick) 187 mg/dL (70-99) 284 mg/dL (70-99) 204 mg/dL (70-99) White Blood Count 5.1 x10^3/uL (4.0-11.0) Red Blood Count 4.86 x10^6/uL (3.50-5.40) Hemoglobin 12.7 g/dL (12.0-15.5) Hematocrit 39.2 % (36.0-47.0) Mean Corpuscular Volume 81 fL (79-100) Mean Corpuscular Hemoglobin 26 pg (25-35) Mean Corpuscular Hemoglobin Concent 32 g/dL (31-37) Red Cell Distribution Width 14.7 % (11.5-14.5) Platelet Count 262 x10^3/uL (140-400) Neutrophils (%) (Auto) 40 % (31-73) Lymphocytes (%) (Auto) 47 % (24-48) Monocytes (%) (Auto) 13 % (0-9) Eosinophils (%) (Auto) 0 % (0-3) Basophils (%) (Auto) 1 % (0-3) Neutrophils # (Auto) 2.0 x10^3uL (1.8-7.7) Lymphocytes # (Auto) 2.4 x10^3/uL (1.0-4.8) Monocytes # (Auto) 0.7 x10^3/uL (0.0-1.1) Eosinophils # (Auto) 0.0 x10^3/uL (0.0-0.7) Basophils # (Auto) 0.0 x10^3/uL (0.0-0.2) Sodium Level 139 mmol/L (136-145) Potassium Level 3.5 mmol/L (3.5-5.1) Chloride Level 102 mmol/L (98-107) Carbon Dioxide Level 30 mmol/L (21-32) Anion Gap 7 (6-14) Blood Urea Nitrogen 9 mg/dL (7-20) Creatinine 0.8 mg/dL (0.6-1.0) Estimated GFR (Cockcroft-Gault) 88.8 Glucose Level 182 mg/dL (70-99) Calcium Level 8.7 mg/dL (8.5-10.1) Test 01/15/19 11:57 01/15/19 17:14 01/15/19 20:07 01/16/19 07:23 Glucose (Fingerstick) 243 mg/dL (70-99) 179 mg/dL (70-99) 204 mg/dL (70-99) 172 mg/dL (70-99) Laboratory Tests Test 01/15/19 11:57 01/15/19 17:14 01/15/19 20:07 01/16/19 07:23 Glucose (Fingerstick) 243 mg/dL (70-99) 179 mg/dL (70-99) 204 mg/dL (70-99) 172 mg/dL (70-99) Medications Current Medications Sodium Chloride 1,000 ml @ 100 mls/hr Q10H IV Last administered on 01/12/19 01:11; Start 01/11/19 at 23:45; Stop 01/12/19 at 09:44; Status DC Ondansetron HCl (Zofran) 4 mg PRN Q8HRS PRN IV NAUSEA/VOMITING; Start 01/12/19 at 02:45; Stop 01/13/19 at 02:44; Status DC Sodium Chloride 1,000 ml @ 100 mls/hr Q10H IV Last administered on 01/12/19 21:34; Start 01/12/19 at 02:45; Stop 01/13/19 at 02:44; Status DC Info (FLU VACCINE SCREEN per RX) 1 each 1X ONCE MC ; Start 01/12/19 at 05:15; Stop 01/12/19 at 05:16; Status UNV Influenza Virus Vaccine (Afluria Trivalent [id number] Syringe) 0.5 ml ONCE ONCE VAX IM Last administered on 01/12/19 09:09; Start 01/12/19 at 09:00; Stop at 09:01; Status DC Amlodipine Besylate (Norvasc) 10 mg DAILY PO Last administered on 01/16/19 09: 05; Start 01/12/19 at 13:00 Atorvastatin Calcium (Lipitor) 40 mg QHS PO Last administered on 01/15/19 21: 27; Start 01/12/19 at 21:00 Insulin Glargine (Lantus) 8 units QHS SQ Last administered on 01/15/19 21:31; Start 01/12/19 at 21:00 Levothyroxine Sodium (Synthroid) 100 mcg DAILY07 PO Last administered on 06:13; Start 01/12/19 at 13:00 Lisinopril (Prinivil) 10 mg DAILY PO Last administered on 01/16/19 09:05; Start 01/12/19 at 13:00 Quetiapine Fumarate (SEROquel) 100 mg QHS PO Last administered on 01/15/19at 21: 27; Start 01/12/19 at 21:00 Hydrochlorothiazide (Microzide) 12.5 mg DAILY PO Last administered on 09:05; Start 01/12/19 at 13:00 Levetiracetam 500 mg/Dextrose 105 ml @ 420 mls/hr Q12HR IV Last administered on 01/15/19 08:56; Start 01/12/19 at 15:30; Stop 01/15/19 at 16:10; Status DC Aspirin (Ecotrin) 81 mg DAILYWBKFT PO Last administered on 01/16/19 09:05; Start 01/12/19 at 15:30 Potassium Chloride (Klor-Con) 40 meq 1X ONCE PO ; Start 01/13/19 at 08:30; Stop 01/13/19 at 08:33; Status DC Potassium Chloride/Water 100 ml @ 100 mls/hr Q1H IV Last administered on 11:09; Start 01/13/19 at 09:00; Stop 01/13/19 at 10:59; Status DC Potassium Chloride (Klor-Con) 20 meq 1X ONCE PO Last administered on at 20:46; Start 01/14/19 at 18:30; Stop 01/14/19 at 18:31; Status DC Potassium Chloride (Klor-Con) 20 meq DAILYWBKFT PO Last administered on 09:05; Start 01/15/19 at 08:00 Levetiracetam (Keppra) 500 mg BID PO Last administered on 01/16/19 09:05; Start 01/15/19 at 21:00 Active Scripts Active Lisinopril-Hctz 10-12.5 Mg Tab (Lisinopril/Hydrochlorothiazide) 1 Each Tablet 1 Tab PO DAILY 3 Days Aspirin Ec (Aspirin) 81 Mg Tablet.dr 1 Tab PO DAILY Lantus Solostar (Insulin Glargine,Hum.rec.anlog) 100 Unit/1 Ml Insuln.pen 8 Unit SQ QHS Amlodipine Besylate 10 Mg Tablet 10 Mg PO DAILY 30 Days Atorvastatin Calcium 40 Mg Tablet 1 Tab PO DAILY 30 Days Reported Trulicity (Dulaglutide) 1.5 Mg/0.5 Ml Pen.injctr 1.5 Mg SQ WEEKLY Seroquel (Quetiapine Fumarate) 300 Mg Tablet 1 Tab PO QHS Levothyroxine Sodium 100 Mcg Tablet 1 Tab PO DAILY Vitals/I & O Vital Sign - Last 24 Hours 01/15/19 01/15/19 01/15/19 01/15/19 11:00 15:00 19:15 20:00 Temp 98.2 98.9 98.3 98.2 98.9 98.3 Pulse 75 81 80 Resp 18 18 18 B/P (MAP) 119/71 (87) 104/61 (75) 112/76 (88) Pulse Ox 97 98 98 O2 Delivery Room Air Room Air Room Air Room Air 01/15/19 01/16/19 01/16/19 01/16/19 23:48 03:29 07:00 09:05 Temp 98.1 97.9 98.6 98.1 97.9 98.6 Pulse 78 74 73 73 Resp 18 18 18 B/P (MAP) 90/50 (63) 96/59 (71) 123/79 (94) 123/79 Pulse Ox 96 95 96 O2 Delivery Room Air Room Air Room Air 01/16/19 09:05 Pulse 73 B/P (MAP) 123/79 Intake and Output 01/15/19 01/15/19 01/16/19 15:00 23:00 07:00 Intake Total 240 ml 170 ml 50 ml Balance 240 ml 170 ml 50 ml NERY PANIAGUA MD Jan 16, 2019 09:15
[2019-01-16] MEDS ORDERED: BARIUM SULFATE 40% (APPLE) 148 GM PWD. PO ONE (14:30)
--- NOTE | 2019-01-16 14:37 | NUR ---
ROSS following pt. Insurance has approved skilled. ROSS phoned and faxed orders to PP. Liu on chart. Pt will transport via [facility] at [phone]. Pt and pt's sister, Cyndie aware of plan and agreeable. RN notified.
--- NOTE | 2019-01-16 15:50 | PDOC3 ---
Discharge Summary Date of Admission: Jan 12, 2019 Date of Discharge: Jan 16, 2019 Follow-Up: 1-2 days Admitting Diagnosis comment: DISCHARGE DX DISCHARGE DX NEW ONSET SEIZURE - no hemorrhage on CT head. 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 History of left subdural hematoma 2 years ago - stable Some hemorrhagic transformation of ischemic CVA - holding ASA Possible interval development of left basal ganglia stroke - will consult neurology Metabolic encephalopathy - likely related to medication noncompliance, elevated sugars, renal insufficiency probably prerenal dehydration, as well as lack of treatment of her psychiatric disorder and her recent stroke History of bipolar disease - cont seroquel History of alcohol abuse, none in several years - monitor Accel HTN - will restart meds FEN - NPO pending DIVISION SALES MANAGER bedside PPX - SCDs FULL CODE Inpatient for acute encephalopathy in patient with recent CVA, she will need skilled placement on D/C, seems to have failed a home health trial at this point. History of Present Illness History of Present Illness 58-year-old right-handed female with history of diabetes and bipolar disorder who was found shaking and unresponsive at home by her sister. Had CVA confirmed 01/05, discharged on 01/07 to home health with her sister. Previously seen 2 years ago for a small subdural hematoma not requiring surgery. CT head in ED did not demonstrate new CVA. Last admit with some hemorrhagic conversion of CVA was holding ASA. Subacute multiple left frontal and right parietal WM infarcts. Small IPH at left BG and arndt radiata. Seizure, new. Hx of left SDH. Old lacunar infarct. Metabolic encephalopathy. 01/12: She has no complaints, except hunger. She is verbalizing as much as she did with me last visit. Failed her bedside swallow with nursing. Oriented to person only, not able to get much more history out of her. 01/14 Diet advanced , feels weak. No cough or chest pain. SEIZURE APPEARS NEW , LOW K 3.3 willl replace 01/15 D/W DAUGHTER SHE FEELS SNF IS BETTER OPTION 01/16 FEELS UNSTEADY WITH GAIT TO SNF TODAY PP Plan: Cont neuro f/u - chanda [Prior admit: Worked with PT/OT/DIVISION SALES MANAGER, SNF VS HOME HEALTH on D/C. BP was difficult to control, requiring IV meds up until day of d/c. placed on 3 antihypertensives on d/c. She could not tolerate metformin due to vomiting, changed to insulin. Previously stopped GLP-1 due to pancreatitis, LIKELY BETTER OUTCOME WITH SNF PLACEMENT Echocardiogram as part of stroke workup: Left ventricle systolic function is normal. The Ejection Fraction is 60-65%. There is normal LV segmental wall motion. The interatrial septum is intact with no evidence for an atrial septal defect or patent foramen ovale as noted on 2-D or Doppler imaging. Injection of bubbles documented no interatrial shunt. mri: 1. Scattered small acute or subacute infarct within the bilateral cerebral white matter and the right cerebellum. The majority of these lesions appear to be subacute based on signal characteristics. The acute lesions are located within the right frontal lobe and right cerebellum. 2. Acute or subacute intraparenchymal hemorrhage or hemorrhagic transformation of an infarct within the left basal ganglia and adjacent periventricular white matter. 3. Suspected chronic hemorrhage or hemorrhagic infarct within the right caudate nucleus and chronic lacunar infarcts within the left caudate nucleus, left thalamus and right jomar. 4. Scattered areas of signal change within the cerebral white matter, likely due to chronic small vessel disease] SWALLOW STUDY Impressions: Mild oropharyngeal dysphagia w/ delay in initiation of swallow of honey thick liquids and puree (note that pt had delays on prior bedside swallow evaluation 01/06). Pt had 2 instances of wet phonation w/ trials of thin liquids. Honey thick liquids appear to eliminate s/s aspiration. Pt appears at low risk of aspiration w/ modified diet of puree and honey thick liquids. Recommendations: Dysphagia I diet w/ honey thick liquids, no straws, swallow precautions posted in room, ST f/u for dysphagia. D/w RN; precautions posted in room Discharge Recommendations * Group Home Unit * Home with 24hr care Treatment Frequency (Days/Week) * 5x/wk over 7 days Additional Details/Impressions * Results as outlined above. Pt w/ overt s/s aspiration, immediate and delayed cough, w/ thin liquids. No s/s aspiration noted w/ honey thick liquids and puree. Oropharyngeal delay continues of 1-3 seconds at times more so w/ honey thick liquids and puree than thin liquids. Mastication inefficiency decreases safety of modified solids w/ pt's current edentulous status. Anticipate pt would be able to advance diet when dentures are available. Hyolaryngeal excursion appears minimally decreased in anterior movement via palp. Impressions: Mild oropharynegal dyspahgia w/ delay in initation of swallow of honey thick liquids and puree (note that pt had delays on prior bedside swallow evaluation 01/06). Pt w/ overt s/s apsiration w/ trials of thin liquids. Honey thick liquids appear to eliminate s/s aspiation. Pt appears at low risk of aspiration w/ modified diet of puree and honey thick liquids. Recommendations: Dysphagia I diet w/ honey thick liquids, no straws, swallow precautions posted in room, ST f/u for dysphagia. Vitals Vitals Vital Signs Date Time Temp Pulse Resp B/P (MAP) Pulse Ox O2 Delivery O2 Flow Rate FiO2 01/16/19 09:05 73 123/79 01/16/19 07:00 98.6 18 96 Room Air 98.6 Physical Exam General: Alert, Oriented X3, Cooperative, No acute distress, Heart: Regular rate, Normal S1, No murmurs Lungs: Clear Abdomen: Normal bowel sounds, Soft, No tenderness Extremities: No clubbing, No cyanosis, No edema, Normal pulses, No tenderness/ swelling Labs FINAL DIAGNOSIS Problems Medical Problems: (1) TIA (transient ischemic attack) Status: Acute Brief Hospital Course Ms. Hairston is a 58 old [sex] who presented with [ NEW CVA/ SEIZURES] CONDITION AT DISCHARGE: Improved Discharge Medications Current Medications Sodium Chloride 1,000 ml @ 100 mls/hr Q10H IV Last administered on 01/12/19at 01:11; Start 01/11/19 at 23:45; Stop 01/12/19 at 09:44; Status DC Ondansetron HCl (Zofran) 4 mg PRN Q8HRS PRN IV NAUSEA/VOMITING; Start 01/12/19 at 02:45; Stop 01/13/19 at 02:44; Status DC Sodium Chloride 1,000 ml @ 100 mls/hr Q10H IV Last administered on 01/12/19at 21:34; Start 01/12/19 at 02:45; Stop 01/13/19 at 02:44; Status DC Info (FLU VACCINE SCREEN per RX) 1 each 1X ONCE MC ; Start 01/12/19 at 05:15; Stop 01/12/19 at 05:16; Status UNV Influenza Virus Vaccine (Afluria Trivalent [id number] Syringe) 0.5 ml ONCE ONCE VAX IM Last administered on 01/12/19 09:09; Start 01/12/19 at 09:00; Stop at 09:01; Status DC Amlodipine Besylate (Norvasc) 10 mg DAILY PO Last administered on 01/16/19 09: 05; Start 01/12/19 at 13:00 Atorvastatin Calcium (Lipitor) 40 mg QHS PO Last administered on 01/15/19 21: 27; Start 01/12/19 at 21:00 Insulin Glargine (Lantus) 8 units QHS SQ Last administered on 01/15/19 21:31; Start 01/12/19 at 21:00 Levothyroxine Sodium (Synthroid) 100 mcg DAILY07 PO Last administered on 06:13; Start 01/12/19 at 13:00 Lisinopril (Prinivil) 10 mg DAILY PO Last administered on 01/16/19 09:05; Start 01/12/19 at 13:00 Quetiapine Fumarate (SEROquel) 100 mg QHS PO Last administered on 01/15/19 21: 27; Start 01/12/19 at 21:00 Hydrochlorothiazide (Microzide) 12.5 mg DAILY PO Last administered on 09:05; Start 01/12/19 at 13:00 Levetiracetam 500 mg/Dextrose 105 ml @ 420 mls/hr Q12HR IV Last administered on 01/15/19 08:56; Start 01/12/19 at 15:30; Stop 01/15/19 at 16:10; Status DC Aspirin (Ecotrin) 81 mg DAILYWBKFT PO Last administered on 01/16/19 09:05; Start 01/12/19 at 15:30 Potassium Chloride (Klor-Con) 40 meq 1X ONCE PO ; Start 01/13/19 at 08:30; Stop 01/13/19 at 08:33; Status DC Potassium Chloride/Water 100 ml @ 100 mls/hr Q1H IV Last administered on 11:09; Start 01/13/19 at 09:00; Stop 01/13/19 at 10:59; Status DC Potassium Chloride (Klor-Con) 20 meq 1X ONCE PO Last administered on at 20:46; Start 01/14/19 at 18:30; Stop 01/14/19 at 18:31; Status DC Potassium Chloride (Klor-Con) 20 meq DAILYWBKFT PO Last administered on at 09:05; Start 01/15/19 at 08:00 Levetiracetam (Keppra) 500 mg BID PO Last administered on 01/16/19 09:05; Start 01/15/19 at 21:00 Barium Sulfate (Varibar Thin Liquid Apple) 148 gm 1X ONCE PO Last administered on 01/16/19 14:26; Start 01/16/19 at 14:30; Stop 01/16/19 at 14:31 ; Status DC Active Scripts Active Lisinopril-Hctz 10-12.5 Mg Tab (Lisinopril/Hydrochlorothiazide) 1 Each Tablet 1 Tab PO DAILY 3 Days Aspirin Ec (Aspirin) 81 Mg Tablet.dr 1 Tab PO DAILY Lantus Solostar (Insulin Glargine,Hum.rec.anlog) 100 Unit/1 Ml Insuln.pen 8 Unit SQ QHS Amlodipine Besylate 10 Mg Tablet 10 Mg PO DAILY 30 Days Atorvastatin Calcium 40 Mg Tablet 1 Tab PO DAILY 30 Days Reported Trulicity (Dulaglutide) 1.5 Mg/0.5 Ml Pen.injctr 1.5 Mg SQ WEEKLY Seroquel (Quetiapine Fumarate) 300 Mg Tablet 1 Tab PO QHS Levothyroxine Sodium 100 Mcg Tablet 1 Tab PO DAILY Vital Signs Vital Signs Date Time Temp Pulse Resp B/P (MAP) Pulse Ox O2 Delivery O2 Flow Rate FiO2 01/16/19 09:05 73 123/79 01/16/19 08:00 Room Air 01/16/19 07:00 98.6 18 96 98.6 Labs Laboratory Tests Test 01/14/19 17:06 01/14/19 20:19 01/15/19 03:45 01/15/19 11:57 Glucose (Fingerstick) 284 mg/dL (70-99) 204 mg/dL (70-99) 243 mg/dL (70-99) White Blood Count 5.1 x10^3/uL (4.0-11.0) Red Blood Count 4.86 x10^6/uL (3.50-5.40) Hemoglobin 12.7 g/dL (12.0-15.5) Hematocrit 39.2 % (36.0-47.0) Mean Corpuscular Volume 81 fL (79-100) Mean Corpuscular Hemoglobin 26 pg (25-35) Mean Corpuscular Hemoglobin Concent 32 g/dL (31-37) Red Cell Distribution Width 14.7 % (11.5-14.5) Platelet Count 262 x10^3/uL (140-400) Neutrophils (%) (Auto) 40 % (31-73) Lymphocytes (%) (Auto) 47 % (24-48) Monocytes (%) (Auto) 13 % (0-9) Eosinophils (%) (Auto) 0 % (0-3) Basophils (%) (Auto) 1 % (0-3) Neutrophils # (Auto) 2.0 x10^3uL (1.8-7.7) Lymphocytes # (Auto) 2.4 x10^3/uL (1.0-4.8) Monocytes # (Auto) 0.7 x10^3/uL (0.0-1.1) Eosinophils # (Auto) 0.0 x10^3/uL (0.0-0.7) Basophils # (Auto) 0.0 x10^3/uL (0.0-0.2) Sodium Level 139 mmol/L (136-145) Potassium Level 3.5 mmol/L (3.5-5.1) Chloride Level 102 mmol/L (98-107) Carbon Dioxide Level 30 mmol/L (21-32) Anion Gap 7 (6-14) Blood Urea Nitrogen 9 mg/dL (7-20) Creatinine 0.8 mg/dL (0.6-1.0) Estimated GFR (Cockcroft-Gault) 88.8 Glucose Level 182 mg/dL (70-99) Calcium Level 8.7 mg/dL (8.5-10.1) Test 01/15/19 17:14 01/15/19 20:07 01/16/19 07:23 01/16/19 11:59 Glucose (Fingerstick) 179 mg/dL (70-99) 204 mg/dL (70-99) 172 mg/dL (70-99) 187 mg/dL (70-99) Laboratory Tests Test 01/15/19 17:14 01/15/19 20:07 01/16/19 07:23 01/16/19 11:59 Glucose (Fingerstick) 179 mg/dL (70-99) 204 mg/dL (70-99) 172 mg/dL (70-99) 187 mg/dL (70-99) Allergies Allergies Coded Allergies Type Severity Reaction Last Updated Verified No Known Drug Allergies 12/09/16 No Disposition/Orders: Other (SNF BED) Patient Instructions D/C PLANNING 39 MIN NERY PANIAGUA MD Jan 16, 2019 15:49
--- NOTE | 2019-01-16 15:51 | RAD ---
VIDEO FLUOROSCOPIC SWALLOWING STUDY History: Dysphagia, oral pharyngeal phase. Stroke. Total fluoroscopic time: 5.8 minutes. Total fluoroscopic spot images: None taken. The study was sent as a video. Findings: A video fluoroscopic swallowing study was performed with the speech pathologist present. There is severe delay in initiation of swallow and completion of the swallow from the oropharynx to the hypopharynx. Even when the contrast bolus is present within the valleculae and the piriform sinus, there is a significant delay in initiation of the swallow and completion of the swallow. This is why it took a longer time to complete the video fluoroscopic swallowing study in this patient. There is one episode of silent mild laryngeal penetration and aspiration below the level of the cords with thin liquids. No laryngeal aspiration is seen with the other substances. Impression: 1 episode of silent laryngeal penetration and aspiration with thin liquids. Significant delay in initiation and completion of the swallow. Full report to follow by speech pathology. Electronically signed by: Surya Leavitt MD (01/16/2019 3:48 PM) [facility]
[2019-01-16] MEDS ORDERED: LEVE500T56 PO (15:54)
[2019-01-16] MEDS ORDERED: QUET100T PO (15:54)
[2019-01-16] MEDS ORDERED: HYDR12.575 PO (15:54)
[2019-01-16] MEDS ORDERED: POTA20TA4 PO (15:54)
--- NOTE | 2019-01-16 15:55 | DISCH ---
DISCHARGE DISCHARGE INFORMATION: FINAL DIAGNOSIS Problems Medical Problems: (1) TIA (transient ischemic attack) Status: Acute CONDITION ON DISCHARGE: Stable CODE STATUS: Code Status: Full NURSING HOME: SNF STAY <30 DAYS: Yes HOSPICE: HOSPICE: No HOSPICE EVAL & TREAT: No LTAC: ADMIT TO LTAC: No POST DISCHARGE ORDERS: ACTIVITY ORDERS: Activity as tolerated WEIGHT BEARING STATUS: No restrictions DIET AFTER DISCHARGE: ADA WOUND/INCISION CARE: No wound care needed CHECKS AFTER DISCHARGE: CHECKS AFTER DISCHARGE: Check blood press - daily, Check blood sugar, ac/hs TREATMENT/EQUIPMENT ORDERS: ADAPTIVE EQUIPMENT NEEDED: None Physical Therapy For: Evalulation/Treatment Occupational Therapy For: Evaluation/Treatment Speech Language Pathology For: Evaluation/Treatment DISCHARGE MEDICATIONS: Home Meds Active Scripts Hydrochlorothiazide (HYDROCHLOROTHIAZIDE CAPSULE ) 12.5 Mg Capsule, 12.5 MG PO DAILY for HTN for 30 Days, #30 CAP Prov:NERY PANIAGUA MD 01/16/19 Potassium Chloride (KLOR-CON M20) 20 Meq Tab.er.prt, 20 MEQ PO DAILYWBKFT for SUPPLEMENT for 30 Days, #30 TAB.SR Prov:NERY PANIAGUA MD 01/16/19 Levetiracetam (KEPPRA) 500 Mg Tablet, 500 MG PO BID for SEIZURES for 30 Days, # 60 TAB Prov:NERY PANIAGUA MD 01/16/19 Quetiapine Fumarate (QUETIAPINE FUMARATE) 100 Mg Tablet, 100 MG PO QHS for MOOD for 14 Days, #14 TAB Prov:NERY PANIAGUA MD 01/16/19 Lisinopril/Hydrochlorothiazide (LISINOPRIL-HCTZ 10-12.5 MG TAB) 1 Each Tablet, 1 TAB PO DAILY for HTN for 3 Days, #3 TAB 5 Refills Prov:ADAMARIS HOPSON MD 01/07/19 Aspirin (ASPIRIN EC) 81 Mg Tablet.dr, 1 TAB PO DAILY for CVA, #30 TAB 3 Refills Prov:ADAMARIS HOPSON MD 01/07/19 Insulin Glargine,Hum.rec.anlog (LANTUS SOLOSTAR) 100 Unit/1 Ml Insuln.pen, 8 UNIT SQ QHS for DM2, #15 ML 3 Refills Prov:ADAMARIS HOPSON MD 01/07/19 Amlodipine Besylate (AMLODIPINE BESYLATE) 10 Mg Tablet, 10 MG PO DAILY for HTN for 30 Days, #30 TAB 2 Refills Prov:ADAMARIS HOPSON MD 01/07/19 Atorvastatin Calcium (ATORVASTATIN CALCIUM) 40 Mg Tablet, 1 TAB PO DAILY for CVA for 30 Days, #30 TAB 5 Refills Prov:ADAMARIS HOPSON MD 01/07/19 Reported Medications Dulaglutide (Trulicity) 1.5 Mg/0.5 Ml Pen.injctr, 1.5 MG SQ WEEKLY, EACH 01/03/19 Levothyroxine Sodium (LEVOTHYROXINE SODIUM) 100 Mcg Tablet, 1 TAB PO DAILY, #30 TAB 5 Refills 01/10/18 Discontinued Reported Medications Quetiapine Fumarate (SEROQUEL) 300 Mg Tablet, 1 TAB PO QHS, #30 TAB 1 Refill 01/10/18 NERY PANIAGUA MD Jan 16, 2019 15:55
--- NOTE | 2019-01-16 17:30 | NUR ---
Discharge Note: [facility] [address] [place] [address] Discharge instructions and discharge home medications reviewed with Lois at [facility] and a copy given. All questions have been answered and understanding verbalized. Discontinued lines and drains: Peripheral IV intact. Patient discharged to [facility] with Family Member via Wheelchair. NIH at discharge was 1.
--- NOTE | 2019-01-16 18:41 | PDOC ---
PROGRESS NOTES Assessment Assessment Subacute multiple left frontal and right parietal WM infarcts. Small IPH at left BG and arndt radiata. Seizure, new. Hx of left SDH. Old lacunar infarct. Metabolic encephalopathy. HTN. HLD. DM. Hypothyroidism. Over weight. RECOMMENDATIONS/PLAN: Continue Keppra 500 mg bid. Continue ASA 81 mg daily. Due to Hx of IPH, no large dose at the present time. Continue Lipitor HS. Treat medical diseases. Treat hypothyroidism per medical team. OT/PT. TSH: 97, T4 0.67 MRI: Refer to radiology reports. Recent Echo: Unremarkable. Recent carotid A US + Doppler: No high grade stenosis. HISTORY OF THE PRESENT ILLNESS: This is a 58-year-old female who recently had infarcts and hemorrhage about 10 days ago and was hospitalized at that time received full evaluation and treatment then discharged home. She came to the ER of [facility] on 01/12/19 with strokelike symptoms. Her daughter indicates that patient was getting up to go to bed when patient's legs gave out, she slumped backward and eyes rolled back in the back of her head. She states that for a short period of time patient was not responsive and then was confused for probably about 5-10 minutes. She denies any shaking. She does state that she noticed that patient had right- sided facial droop which is new from when she was discharged. She states that facial droop is still present. Past Medical History Cardiovascular: HTN Psych: Addictions (alcohol), Bipolar Endocrine: Diabetes, Hypothyroidism Past Surgical History Removal of breast lumps, D&C. Family History CVA, Other (polio) ALLERGY: NKDA MEDICATIONS: Refer to [facility] SOCIAL HISTORY: Lives alone. Denies smoking, drinking, and illicit drug use. REVIEW OF SYSTEMS: Constitutional: No malnutrition, weight loss, cachexia. Head: No traumatic brain or head injury. Skin: No edema, or rash. Ear: No infection. Eyes: No vision loss or color blindness. Nose: No bleeding or purulent discharges. Hearing: No hearing decrease. Neck: No injury. Breast: No history of cancer, masses,or discharges. Cardiac: HTN, HLD. Pulmonary: No COPD. GI: No GI ulcer, GI bleeding. Urinary/genital: UTI. Endocrinologic: Diabetes Mellitus, hypothyroidism. Skeletomuscular: No muscular atrophy. Neurological: see HP. Psychiatric: Denies drug use/abuse. Otherwise, not [id number] review of systems. PHYSICAL EXAMINATION: General appearance is in no acute distress. HEENT: Normocephalic and nontraumatic. Eyes, nose, ears, and throat are unremarkable. Neck is supple. No lymphadenopathy. No bruits are heard over the carotid artery. No crepitus. Cardiovascular: S1, S2, regular rate and rhythm. Pulmonary: Clear to auscultation bilaterally. Abdomen: Bowel sounds are positive. Abdomen is soft, nontender, and nondistended. Extremities: No rash, lesions, or edema. No restriction of range of motion NEUROLOGICAL EXAMINATION: Awake. Not fully oriented to time, but knew place and person. PERRL. EOMI. CN: no focal findings. Muscle tone: within normal. Muscle strength: 4+ DTR: 2 Plantar reflex: Neutral response bilaterally Gait: Able to walk with a walker. Sensory exam: no abnormal findings. No cerebellar signs elicited. F-T-N test fine. Objective Objective Vital Signs Date Time Temp Pulse Resp B/P (MAP) Pulse Ox O2 Delivery O2 Flow Rate FiO2 01/16/19 09:05 73 123/79 01/16/19 08:00 Room Air 01/16/19 07:00 98.6 18 96 98.6 Intake and Output 01/16/19 07:00 Intake Total 460 ml Balance 460 ml Intake Oral 460 ml # Voids 8 Vitals Signs Vitals VS - Last 72 Hours, by Label Date Time Temp Pulse Resp B/P (MAP) Pulse Ox O2 Delivery O2 Flow Rate FiO2 01/16/19 09:05 73 123/79 01/16/19 09:05 73 123/79 01/16/19 08:00 Room Air 01/16/19 07:00 98.6 73 18 123/79 (94) 96 Room Air 98.6 01/16/19 03:29 97.9 74 18 96/59 (71) 95 Room Air 97.9 01/15/19 23:48 98.1 78 18 90/50 (63) 96 Room Air 98.1 01/15/19 20:00 Room Air 01/15/19 19:15 98.3 80 18 112/76 (88) 98 Room Air 98.3 01/15/19 15:00 98.9 81 18 104/61 (75) 98 Room Air 98.9 01/15/19 11:00 98.2 75 18 119/71 (87) 97 Room Air 98.2 01/15/19 09:01 75 112/72 01/15/19 09:00 75 112/72 01/15/19 07:26 Room Air Laboratory Laboratory Laboratory Tests Test 01/15/19 20:07 01/16/19 07:23 01/16/19 11:59 Glucose (Fingerstick) 204 mg/dL (70-99) 172 mg/dL (70-99) 187 mg/dL (70-99) Medication Medications Current Medications Barium Sulfate (Varibar Thin Liquid Apple) 148 gm 1X ONCE PO Last administered on 01/16/19at 14:26; Start 01/16/19 at 14:30; Stop 01/16/19 at 14:31 ; Status DC Levetiracetam (Keppra) 500 mg BID PO Last administered on 01/16/19at 09:05; Start 01/15/19 at 21:00; Stop 01/16/19 at 17:33; Status DC Comment Review of Relevant I have reviewed the following items love (where applicable) has been applied. DEVON SANCHEZ MD Jan 16, 2019 18:41
== END 2019-01-16 17:30 | DRG 64 ==
LOC: ER 23:00 → 6 SOUTH 01-12 03:10
PROVIDERS: ADMIT Internal Medicine; ATTEND Internal Medicine
DX: I63.89 Other cerebral infarction (principal); G93.41 Metabolic encephalopathy; E11.51 Type 2 diabetes mellitus with diabetic peripheral angiopathy without gangrene; E78.00 Pure hypercholesterolemia, unspecified; F31.9 Bipolar disorder, unspecified; E89.0 Postprocedural hypothyroidism; I10 Essential (primary) hypertension; G62.9 Polyneuropathy, unspecified; R56.9 Unspecified convulsions; E78.5 Hyperlipidemia, unspecified; R26.81 Unsteadiness on feet; E86.0 Dehydration; N28.9 Disorder of kidney and ureter, unspecified; Z82.3 Family history of stroke; Z79.899 Other long term (current) drug therapy; Z86.73 Personal history of transient ischemic attack (TIA), and cerebral infarction without residual deficits; Z82.49 Family history of ischemic heart disease and other diseases of the circulatory system; Z79.82 Long term (current) use of aspirin; Z91.14 Patient's other noncompliance with medication regimen
CPT/HCPCS: 36415; 70450; 70551; 74230; 80048; 80053; 82962; 83735; 84439; 84443; 85025; 85610; 90471; 90756; 93005; 95816; 96360; 96361; J1815; J1953; J3480; J7030; 92526; 92610; 92611; 97110; 97116; 97530; 97535; 99285-25; Q2035